=== PATIENT | male | born 1950 | race Caucasian/White ===

== ENCOUNTER → 2016-11-11 | Outpatient (CLI) | payer OTHER ==
[~2016-11-11] MED LIST: /ACET5TA PO; /BACL20TA; /BACL20TA OR; /BACL20TA PO; /FEXO18TA OR; /FEXO18TA PO; /MIRT15TA PO; /PRAV20TA PO; AMIT25TA PO; BACL10TA2; COLA100C2; COLA100C2 OR; CRES5TAB OR; CRES5TAB PO; DOCU10ELUD PO; FINA5TAB2 PO; GABA300C2 PO; IBUP800T OR; IBUP80TA PO; LIDO5DIS; LIDO5DIS TD; MULTCAP PO; MULTIVIT OR; NEOSYNEPHRINE; NEUR300C OR; OMEP20CA3 PO; PRAV40TA2 PO; PRIL20CA OR; TAMS0.4C2 PO; TOPI25TA2 OR; ULTR300T OR; ULTR300T PO; VISINE OU
--- NOTE | 2016-11-26 23:44 | ECWPNPC ---
PATIENT NAME: CHRISSY ARAUJO : 1950 GENDER: MALE VISIT DATE: 11/11/2016 DISCHARGE DATE: 11/11/16 1309 VISIT LOCKED DATE TIME: PHYSICIAN: MONICA CORDOVA RESOURCE: MONICA CORDOVA REASON FOR APPOINTMENT 1. INCREASING PAIN HISTORY OF PRESENT ILLNESS HISTORY OF PRESENT ILLNESS: PAIN THE PATIENT DESCRIBES THE PAIN... FALL RISK SCREENING: SCREENING :NO FALLS IN THE PAST YEAR TODAY'S VISIT: NOTES: FOLLOWUP FOR BACK PAIN. ABOUT 3 WEEKS AGO BEGAN HAVING INCREASE IN LOW BACK PAIN WITH RADIATION TO LEFT LEG TO FOOT. HAS BEEN EXPERIENCING NUMBNESS AND TINGLING IN BOTH FEET. OVER THE LAST WEEK THE PAIN IS NOT QUITE SEVERE IN LEFT BUT IS RAMPING UP ON THE RIGHT. HAD BEEN A BIT MORE ACTIVE BUT HAD NO FALLS AND NO TRAUMA. HAD BEEN TAKEN OFF IBUPROFEN BUT DID TAKE ONE DOSE WHICH WAS MILDLY EFFECTIVE. . CURRENT MEDICATIONS TAKING TAMSULOSIN HCL 0.4 MG CAPSULE ORAL ONCE DAILY TAKING FINASTERIDE 5 MG TABLET ORAL ONCE DAILY TAKING AMITRIPTYLINE HCL 50 MG TABLET ORAL ONCE DAILY TAKING OMEPRAZOLE 40 MG CAPSULE DELAYED RELEASE ORAL ONCE DAILY TAKING LORATADINE 10 MG TABLET 1 TABLET ORALLY ONCE A DAY TAKING ATORVASTATIN CALCIUM 40 MG TABLET 1 TABLET ORALLY ONCE A DAY TAKING METOPROLOL TARTRATE 25 MG TABLET .5 TAB ORALLY TWICE A DAY TAKING ASPIRIN 81 MG TABLET CHEWABLE 1 TABLET ORALLY ONCE A DAY TAKING CLOPIDOGREL BISULFATE 75 MG TABLET 1 TABLET ORALLY ONCE A DAY TAKING RAMIPRIL 2.5 MG CAPSULE 1 CAPSULE ORALLY ONCE A DAY TAKING NITROGLYCERIN 0.4 MG TABLET SUBLINGUAL SUBLINGUAL TAKING GABAPENTIN 300 MG CAPSULE 1 CAPSULE ORALLY TAKE 1 CAP IN AM, ONE CAP AT 3 PM AND 2 CAPS AT BEDTIME TAKING ISOSORBIDE DINITRATE 30 MG TABLET 1 TABLET ORALLY DAILY TAKING FLUOXETINE HCL 40 MG CAPSULE 1 CAPSULE IN THE MORNING ORALLY ONCE A DAY TAKING TRAMADOL HCL ER 300 MG TABLET EXTENDED RELEASE 24 HOUR 1 TABLET ORALLY ONCE A DAY CODE D CHRONIC PAIN MDD=1 NOT-TAKING GABAPENTIN 300 MG CAPSULE 1 CAPSULE ORALLY TWICE DAILY 3 MONTH SUPPLY NOT-TAKING GABAPENTIN 300 MG CAPSULE 1 CAPSULE ORALLY TAKE 1 CQAP IN AM, ONE AT SUPPER AND 2 AT BEDTIME NOT-TAKING PRAVASTATIN SODIUM 40 MG TABLET ORAL ONCE DAILY MEDICATION LIST REVIEWED AND RECONCILED WITH THE PATIENT PAST MEDICAL HISTORY PROSTATE HIGH CHOLESTEROL [place] HEART STENT ALLERGIES POLLEN SOCIAL HISTORY GENERAL: TOBACCO USE ARE YOU A:NONSMOKER LEARNING BARRIERS / SPECIAL NEEDS ORIENTED TO PLAN OF CARE: PATIENT, PAIN MANAGEMENT PATIENT, ORIENTED TO PLAN OF CARE: PATIENT, PAIN MANAGEMENT PATIENT. NEW PATIENT PAIN DIARY TODAY'S VISITNOTES FROM 0-10, WHAT LEVEL IS YOUR PAIN TODAY?0 PAIN CLINIC PFS, CLERGY, PUBLIC HEALTH REFERRALS PFS REFERRAL NEEDED?NO CLERGY REFERRAL NEEDED?NO PUBLIC HEALTH REFERRAL NEEDED?NO WAS THE PROVIDER NOTIFIED OF ANY PERTINENT INFO?NO PFS REFERRAL NEEDED?NO CLERGY REFERRAL NEEDED?NO PUBLIC HEALTH REFERRAL NEEDED?NO WAS THE PROVIDER NOTIFIED OF ANY PERTINENT INFO?NO REVIEW OF SYSTEMS CONSTITUTIONAL: ANY CHANGE IN YOUR MEDICAL CONDITION? NO . CHILLS NO . FEVER NO . INFECTION: DO YOU HAVE NEW INFECTIONS? NO . DO YOU HAVE HISTORY OF MRSA? NO . MUSCULOSKELETAL: ANY NEW PATTERNS OF PAIN OR NUMBNESS? NO . GASTROENTEROLOGY: ANY NEW CHANGE IN BOWEL CONTROL? NO . GENITOURINARY: ANY NEW CHANGE IN BLADDER CONTROL? NO . IS THERE A CHANCE YOU COULD BE ? NO . HEMATOLOGY/LYMPH: DO YOU TAKE ANY BLOOD THINNERS? (FOR EXAMPLE- COUMADIN, PLAVIX, AGGRENOX, PLATEL, PRADAXA, OR XARELTO) NO . WHEN WAS YOUR LAST DOSE? DATE: TIME: . NEUROLOGY: HAVE YOU FALLEN IN THE PAST 6 MONTHS? NO . ANY NEW EXTREMITY NUMBNESS OR WEAKNESS? NO . CARDIOLOGY: DO YOU HAVE A PACEMAKER OR DEFIBRILLATOR? NO . HEART ATTACK STATUS POST CARDIAC STENT 07/18 . CHEST PAIN LAST NITE HAD CHEST PAIN AND TOOK MICHAEL X1. . CHEST PAIN LASTED FOR 2 HOURS. . RESPIRATORY: HAVE YOU BEEN SICK IN THE PAST WEEK? NO . FEVER NO . FLU LIKE SYMPTOMS? NO . COUGH NO . INTEGUMENTARY: DO YOU HAVE ANY RASHES OR OPEN SORES? NO . ALLERGIC/IMMUNO: ARE YOU ALLERGIC TO SHELLFISH OR IV DYE? NO . ANY NEW ALLERGIES? NO . PSYCHIATRIC: DO YOU HAVE THOUGHTS OF HURTING YOURSELF OR SOMEONE ELSE? NO . ARE YOU ABUSED, NEGLECTED, OR IN AN UNSAFE ENVIRONMENT? NO . ENDOCRINOLOGY: ARE YOU DIABETIC? NO . OTHER: DO YOU NEED ANY PRESCRIPTIONS? YES NEEDS ELECTRODES FOR TENS UNIT . IF YES, PLEASE LIST: ____ . ANY NEW PROBLEMS WITH YOUR MEDICATIONS? NO . WHEN DID YOU LAST EAT? ____ . WHEN DID YOU LAST DRINK? ____ . WHAT DID YOU LAST DRINK? ____ . NAME OF PERSON DRIVING YOU HOME? ____ . DO YOU HAVE ANY OTHER QUESTIONS OR CONCERNS NO . REVIEWED BY: PROVIDER: MONICA JAY . VITAL SIGNS WT 210 LBS, HT 72 IN, BMI 28.48 INDEX, BP 134/76 MM HG, HR 89 /MIN, RR 16 /MIN, TEMP 98 F,2 F, OXYGEN SAT % 94, SAFE IN ENV? (Y/N) Y, REVIEWED BY: KG. EXAMINATION GENERAL EXAMINATION: LUNGS:CLEAR TO AUSCULTATION BILATERALLY. HEART:HEART RATE REGULAR. MUSCULOSKELETAL:MUSCLE STRENGTH TESTING 5/5 LEFT LOWER EXTREMITY, 5-/5 RIGHT LOWER EXTREMITY, BOTH DISTALLY AND PROXIMALLY. , PALPATION: POSITIVE FOR PAIN WITH PALPATION OVER LUMBAR SPINOUS PROCESSES AND ACROSS THE LUMBOSACRAL AXIS. EXQUISITE TENDERNESS WITH PALPATION BILATERALLY OVER THE SACRALILIAC JOINTS. SLOW AND STIFF TO STAND , GAIT ANTALGIC. POSTURE STOOPED.. 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 GET FOLLOWUP APPOINTMENT WITH DR MILLER - CAN HE PUT PLAVIX ON HOLD FOR 7 DAYS FOR EPIDURAL INJECTION. PROCEDURES PN WORKMANS' COMP OPINION IN YOUR OPINION, WAS THE INCIDENT THAT THE PATIENT DESCRIBED THE COMPETENT MEDICAL CAUSE OF THIS INJURY/ILLNESS? YES ARE THE PATIENT'S COMPLAINTS CONSISTENT WITH HIS/HER HISTORY OF THE INJURY/ILLNESS? YES IS THE PATIENT'S HISTORY OF THE INJURY/ILLNESS CONSISTENT WITH YOUR OBJECTIVE FINDING? YES WHAT IS THE PERCENTAGE OF TEMPORARY IMPAIRMENT? MODERATE TO MARKED = 66.7% IS THE PATIENT WORKING? NO DOCTOR ON SITE: ROBERT VIRGEN MD PROCEDURE CODES FA211 ESTABILISHED PATIENT [facility] CHARGE FOLLOW UP 4 WEEKS (REASON: NEED AUTH FROM FOR [facility], SEND LETTER FROM DR MILLER TO BE OFF PLAVIX FOR 7 DAYS) ELECTRONICALLY SIGNED BY ROBLES MILLER ON 11/26/2016 AT 09:45 AM EST DISCLAIMER : THIS IS A VISIT SUMMARY EXTRACTED FROM THE [employer] CHART. IT IS NOT A COPY OF THE [employer] PROGRESS NOTE. TOO
== END ==
LOC: M PAIN 11:40
PROVIDERS: ATTEND Nurse Practitioner Family
DX: Z09 Encounter for follow-up examination after completed treatment for conditions other than malignant neoplasm (principal); M47.816 Spondylosis without myelopathy or radiculopathy, lumbar region; M47.817 Spondylosis without myelopathy or radiculopathy, lumbosacral region; E78.00 Pure hypercholesterolemia, unspecified; I25.2 Old myocardial infarction; J30.1 Allergic rhinitis due to pollen; Z79.82 Long term (current) use of aspirin; Z79.891 Long term (current) use of opiate analgesic; Z79.899 Other long term (current) drug therapy; Z95.5 Presence of coronary angioplasty implant and graft

== ENCOUNTER → 2017-01-20 | Outpatient (CLI) | payer OTHER ==
--- NOTE | 2017-01-24 00:32 | ECWPNPC ---
PATIENT NAME: CHRISSY ARAUJO : 1950 GENDER: MALE VISIT DATE: 01/20/2017 DISCHARGE DATE: 01/20/17 0946 VISIT LOCKED DATE TIME: PHYSICIAN: MONICA CORDOVA RESOURCE: MONICA CORDOVA REASON FOR APPOINTMENT 1. WC, BACK HISTORY OF PRESENT ILLNESS HISTORY OF PRESENT ILLNESS: PAIN THE PATIENT DESCRIBES THE PAIN... FALL RISK SCREENING: SCREENING :NO FALLS IN THE PAST YEAR TODAY'S VISIT: NOTES: WC FOLLOWUP FOR BACK PAIN. RATES PAIN TODAY 2/10. HAS NOTED IMPROVEMENT IN PAIN WITH USE OF THE PAIN RADIATING TO LEFT LEG HAS IMPROVED. STILL HAS CONSISTANT SHOOTING PAIN IN RIGHT LEG. . CURRENT MEDICATIONS TAKING TAMSULOSIN HCL 0.4 MG CAPSULE ORAL ONCE DAILY TAKING FINASTERIDE 5 MG TABLET ORAL ONCE DAILY TAKING AMITRIPTYLINE HCL 50 MG TABLET ORAL ONCE DAILY TAKING OMEPRAZOLE 40 MG CAPSULE DELAYED RELEASE ORAL ONCE DAILY TAKING LORATADINE 10 MG TABLET 1 TABLET ORALLY ONCE A DAY TAKING ATORVASTATIN CALCIUM 40 MG TABLET 1 TABLET ORALLY ONCE A DAY TAKING METOPROLOL TARTRATE 25 MG TABLET .5 TAB ORALLY TWICE A DAY TAKING ASPIRIN 81 MG TABLET CHEWABLE 1 TABLET ORALLY ONCE A DAY TAKING CLOPIDOGREL BISULFATE 75 MG TABLET 1 TABLET ORALLY ONCE A DAY TAKING RAMIPRIL 2.5 MG CAPSULE 1 CAPSULE ORALLY ONCE A DAY TAKING NITROGLYCERIN 0.4 MG TABLET SUBLINGUAL SUBLINGUAL TAKING GABAPENTIN 300 MG CAPSULE 1 CAPSULE ORALLY TAKE 1 CAP IN AM, ONE CAP AT 3 PM AND 2 CAPS AT BEDTIME TAKING ISOSORBIDE DINITRATE 30 MG TABLET 1 TABLET ORALLY DAILY TAKING FLUOXETINE HCL 40 MG CAPSULE 1 CAPSULE IN THE MORNING ORALLY ONCE A DAY TAKING NORCO 5-325 MG TABLET 1 TABLET NEEDED ORALLY EVERY 12 HRS PRN SEVERE PAIN MDD=2 TAKING TRAMADOL HCL ER 300 MG TABLET EXTENDED RELEASE 24 HOUR 1 TABLET ORALLY ONCE A DAY CODE D CHRONIC PAIN MDD=1 NOT-TAKING GABAPENTIN 300 MG CAPSULE 1 CAPSULE ORALLY TWICE DAILY 3 MONTH SUPPLY NOT-TAKING GABAPENTIN 300 MG CAPSULE 1 CAPSULE ORALLY TAKE 1 CQAP IN AM, ONE AT SUPPER AND 2 AT BEDTIME NOT-TAKING PRAVASTATIN SODIUM 40 MG TABLET ORAL ONCE DAILY MEDICATION LIST REVIEWED AND RECONCILED WITH THE PATIENT PAST MEDICAL HISTORY PROSTATE HIGH CHOLESTEROL [place] HEART STENT ALLERGIES POLLEN SOCIAL HISTORY GENERAL: TOBACCO USE ARE YOU A:NONSMOKER LEARNING BARRIERS / SPECIAL NEEDS ORIENTED TO PLAN OF CARE: PATIENT, PAIN MANAGEMENT PATIENT, ORIENTED TO PLAN OF CARE: PATIENT, PAIN MANAGEMENT PATIENT. NEW PATIENT PAIN DIARY TODAY'S VISITNOTES FROM 0-10, WHAT LEVEL IS YOUR PAIN TODAY?0 PAIN CLINIC PFS, CLERGY, PUBLIC HEALTH REFERRALS PFS REFERRAL NEEDED?NO CLERGY REFERRAL NEEDED?NO PUBLIC HEALTH REFERRAL NEEDED?NO WAS THE PROVIDER NOTIFIED OF ANY PERTINENT INFO?NO PFS REFERRAL NEEDED?NO CLERGY REFERRAL NEEDED?NO PUBLIC HEALTH REFERRAL NEEDED?NO WAS THE PROVIDER NOTIFIED OF ANY PERTINENT INFO?NO REVIEW OF SYSTEMS CONSTITUTIONAL: ANY CHANGE IN YOUR MEDICAL CONDITION? NO . CHILLS NO . FEVER NO . INFECTION: DO YOU HAVE NEW INFECTIONS? NO . DO YOU HAVE HISTORY OF MRSA? NO . MUSCULOSKELETAL: ANY NEW PATTERNS OF PAIN OR NUMBNESS? NO . GASTROENTEROLOGY: ANY NEW CHANGE IN BOWEL CONTROL? NO . GENITOURINARY: ANY NEW CHANGE IN BLADDER CONTROL? NO . IS THERE A CHANCE YOU COULD BE ? NO . HEMATOLOGY/LYMPH: DO YOU TAKE ANY BLOOD THINNERS? (FOR EXAMPLE- COUMADIN, PLAVIX, AGGRENOX, PLATEL, PRADAXA, OR XARELTO) YES, PLAVIX . WHEN WAS YOUR LAST DOSE? DATE:01/20/17 TIME: 0730 . NEUROLOGY: HAVE YOU FALLEN IN THE PAST 6 MONTHS? NO . ANY NEW EXTREMITY NUMBNESS OR WEAKNESS? NO . CARDIOLOGY: DO YOU HAVE A PACEMAKER OR DEFIBRILLATOR? NO . CHEST PAIN OCCASIONAL. HAS NEEDED TO USE NTG. BALL HAD SOME SOB WITH EXERTION . RESPIRATORY: HAVE YOU BEEN SICK IN THE PAST WEEK? NO . FEVER NO . FLU LIKE SYMPTOMS? NO . COUGH NO . INTEGUMENTARY: DO YOU HAVE ANY RASHES OR OPEN SORES? NO . ALLERGIC/IMMUNO: ARE YOU ALLERGIC TO SHELLFISH OR IV DYE? NO . ANY NEW ALLERGIES? NO . PSYCHIATRIC: DO YOU HAVE THOUGHTS OF HURTING YOURSELF OR SOMEONE ELSE? NO . ARE YOU ABUSED, NEGLECTED, OR IN AN UNSAFE ENVIRONMENT? NO . ENDOCRINOLOGY: ARE YOU DIABETIC? NO . OTHER: DO YOU NEED ANY PRESCRIPTIONS? NO . IF YES, PLEASE LIST: ____ . ANY NEW PROBLEMS WITH YOUR MEDICATIONS? NO . WHEN DID YOU LAST EAT? ____ . WHEN DID YOU LAST DRINK? ____ . WHAT DID YOU LAST DRINK? ____ . NAME OF PERSON DRIVING YOU HOME? ____ . DO YOU HAVE ANY OTHER QUESTIONS OR CONCERNS NO . REVIEWED BY: PROVIDER: MONICA JAY . VITAL SIGNS WT 210 LBS, HT 72 IN, BMI 28.48 INDEX, BP 133/80 MM HG, HR 56 /MIN, RR 18 /MIN, TEMP 97.0 F, OXYGEN SAT % 96, NA INITIALS HS, REVIEWED BY: CS. EXAMINATION GENERAL EXAMINATION: PSYCHALERT , ORIENTED X 3 , APPROPRIATE MOOD AND AFFECT . LUNGS:CLEAR TO AUSCULTATION BILATERALLY. HEART:HEART RATE REGULAR. MUSCULOSKELETAL:SLOW TO RISE TO STANDING POSITION. DIFFICULTY WITH BALANCE. POSTURE UPRIGHT TODAY. POINT TENDERNESS OVER LUMBAR SPINOUS PROCESSES AND RIGHT SACRALILIAC JOINT. GAIT IS STEPPING IN NATURE. NEUROLOGIC EXAM:POSITIVE ROMBERG. DECREASED SENSATION IN STOCKING/GLOVE NATURE FROM FEET TO MIDCALF. 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 WALK TOLERATED. PROCEDURES PN WORKMANS' COMP OPINION IN YOUR OPINION, WAS THE INCIDENT THAT THE PATIENT DESCRIBED THE COMPETENT MEDICAL CAUSE OF THIS INJURY/ILLNESS? YES ARE THE PATIENT'S COMPLAINTS CONSISTENT WITH HIS/HER HISTORY OF THE INJURY/ILLNESS? YES IS THE PATIENT'S HISTORY OF THE INJURY/ILLNESS CONSISTENT WITH YOUR OBJECTIVE FINDING? YES WHAT IS THE PERCENTAGE OF TEMPORARY IMPAIRMENT? MODERATE TO MARKED = 66.7% IS THE PATIENT WORKING? NO DOCTOR ON SITE: ROBERT VIRGEN MD PROCEDURE CODES FA211 ESTABILISHED PATIENT [facility] CHARGE DISPOSITION & COMMUNICATION FOLLOW UP 6 WEEKS (REASON: WC BACK) ELECTRONICALLY SIGNED BY ROBLES MILLER ON 01/23/2017 AT 06:24 PM EDT DISCLAIMER : THIS IS A VISIT SUMMARY EXTRACTED FROM THE [facility] CHART. IT IS NOT A COPY OF THE [facility] PROGRESS NOTE. TOO
== END ==
LOC: M PAIN 09:00
PROVIDERS: ATTEND Nurse Practitioner Family
DX: Z09 Encounter for follow-up examination after completed treatment for conditions other than malignant neoplasm (principal); G89.29 Other chronic pain; M47.816 Spondylosis without myelopathy or radiculopathy, lumbar region; M47.817 Spondylosis without myelopathy or radiculopathy, lumbosacral region; E78.00 Pure hypercholesterolemia, unspecified; I25.2 Old myocardial infarction; Z79.01 Long term (current) use of anticoagulants; Z79.82 Long term (current) use of aspirin; Z79.891 Long term (current) use of opiate analgesic; Z79.899 Other long term (current) drug therapy

== ENCOUNTER → 2017-04-13 | Outpatient (CLI) | payer OTHER ==
--- NOTE | 2017-04-14 02:29 | ECWPNPC ---
PATIENT NAME: CHRISSY ARAUJO : 1950 GENDER: MALE VISIT DATE: 04/13/2017 DISCHARGE DATE: 04/13/17915 VISIT LOCKED DATE TIME: PHYSICIAN: MONICA CORDOVA RESOURCE: MONICA CORDOVA HISTORY OF PRESENT ILLNESS HISTORY OF PRESENT ILLNESS: PAIN THE PATIENT DESCRIBES THE PAIN... FALL RISK SCREENING: SCREENING :NO FALLS IN THE PAST YEAR TODAY'S VISIT: NOTES: HAS DOING WELL = PAIN LEVLE 12/12. DESCRIBES PAIN ACHING, TENDER AND SORE. HAS HAD 2 EPISODES OF FALLS RESULTING FROM TRIPPING SWECONDARY TO WEAKNESS IN THE RIGHT LEG. HAS CONTINUED TO HAVE NUMBNESS FROM IN RIGHT CALF TO FOOT. HAS BEEN SLEEING FARLY WELL. REPORTS MEDICATIONS ARE HELPFUL TO KEEP PAIN CONTROLLED.. CURRENT MEDICATIONS TAKING TAMSULOSIN HCL 0.4 MG CAPSULE ORAL ONCE DAILY TAKING FINASTERIDE 5 MG TABLET ORAL ONCE DAILY TAKING AMITRIPTYLINE HCL 50 MG TABLET ORAL ONCE DAILY TAKING OMEPRAZOLE 40 MG CAPSULE DELAYED RELEASE ORAL ONCE DAILY TAKING LORATADINE 10 MG TABLET 1 TABLET ORALLY ONCE A DAY TAKING ATORVASTATIN CALCIUM 40 MG TABLET 1 TABLET ORALLY ONCE A DAY TAKING METOPROLOL TARTRATE 25 MG TABLET .5 TAB ORALLY DAILY TAKING ASPIRIN 81 MG TABLET CHEWABLE 1 TABLET ORALLY ONCE A DAY TAKING CLOPIDOGREL BISULFATE 75 MG TABLET 1 TABLET ORALLY ONCE A DAY TAKING RAMIPRIL 2.5 MG CAPSULE 1 CAPSULE ORALLY ONCE A DAY TAKING NITROGLYCERIN 0.4 MG TABLET SUBLINGUAL SUBLINGUAL TAKING GABAPENTIN 300 MG CAPSULE 1 CAPSULE ORALLY TAKE 1 CAP IN AM, ONE CAP AT 3 PM AND 2 CAPS AT BEDTIME TAKING ISOSORBIDE DINITRATE 30 MG TABLET 1 TABLET ORALLY DAILY TAKING FLUOXETINE HCL 40 MG CAPSULE 1 CAPSULE IN THE MORNING ORALLY ONCE A DAY TAKING NORCO 5-325 MG TABLET 1 TABLET NEEDED ORALLY EVERY 12 HRS PRN SEVERE PAIN MDD=2 TAKING TRAMADOL HCL ER 300 MG TABLET EXTENDED RELEASE 24 HOUR 1 TABLET ORALLY ONCE A DAY CODE D CHRONIC PAIN MDD=1 TAKING VITAMIN B COMPLEX - CAPSULE ORALLY NOT-TAKING GABAPENTIN 300 MG CAPSULE 1 CAPSULE ORALLY TWICE DAILY 3 MONTH SUPPLY NOT-TAKING GABAPENTIN 300 MG CAPSULE 1 CAPSULE ORALLY TAKE 1 CQAP IN AM, ONE AT SUPPER AND 2 AT BEDTIME NOT-TAKING PRAVASTATIN SODIUM 40 MG TABLET ORAL ONCE DAILY MEDICATION LIST REVIEWED AND RECONCILED WITH THE PATIENT PAST MEDICAL HISTORY PROSTATE HIGH CHOLESTEROL [place] HEART STENT ALLERGIES POLLEN REVIEW OF SYSTEMS CONSTITUTIONAL: ANY CHANGE IN YOUR MEDICAL CONDITION? NO . CHILLS NO . FEVER NO . INFECTION: DO YOU HAVE NEW INFECTIONS? NO . DO YOU HAVE HISTORY OF MRSA? NO . MUSCULOSKELETAL: ANY NEW PATTERNS OF PAIN OR NUMBNESS? NO . GASTROENTEROLOGY: ANY NEW CHANGE IN BOWEL CONTROL? NO . GENITOURINARY: ANY NEW CHANGE IN BLADDER CONTROL? NO . IS THERE A CHANCE YOU COULD BE ? NO . HEMATOLOGY/LYMPH: DO YOU TAKE ANY BLOOD THINNERS? (FOR EXAMPLE- COUMADIN, PLAVIX, AGGRENOX, PLATEL, PRADAXA, OR XARELTO) YES . WHEN WAS YOUR LAST DOSE? DATE: TIME: . NEUROLOGY: HAVE YOU FALLEN IN THE PAST 6 MONTHS? YES PT REPORTS TWO FALLS IN PAST SIX MONTHS DUE TO TRIPPING, DOESN'T THINK HE IS LOSING HIS BALANCE OR BECAUSE OF LEG WEAKNESS. STATES HE CATCHES HIS FEET ON SOMETHING AND TRIPS. DENIES INJURIES.&NBSP;. ANY NEW EXTREMITY NUMBNESS OR WEAKNESS? &NBSP;&NBSP; NO&NBSP;. CARDIOLOGY: DO YOU HAVE A PACEMAKER OR DEFIBRILLATOR? NO . CHEST PAIN PATIENT ADMITS TO ONE EVENT SINCE LAST VISIT, REQUIRING NITRO X2 AND BABY ASPIRIN . RESPIRATORY: HAVE YOU BEEN SICK IN THE PAST WEEK? NO . FEVER NO . FLU LIKE SYMPTOMS? NO . CHRONIC LUNG DISEASES HAD PULMONARY FUNCTION TESTING. . SHORTNESS OF BREATH ON EXERTION CONTINUES TO HAVE DIFFICULTY WITH ACTIVITY . COUGH NO . INTEGUMENTARY: DO YOU HAVE ANY RASHES OR OPEN SORES? NO . ALLERGIC/IMMUNO: ARE YOU ALLERGIC TO SHELLFISH OR IV DYE? NO . ANY NEW ALLERGIES? NO . PSYCHIATRIC: DO YOU HAVE THOUGHTS OF HURTING YOURSELF OR SOMEONE ELSE? NO . ARE YOU ABUSED, NEGLECTED, OR IN AN UNSAFE ENVIRONMENT? NO . ENDOCRINOLOGY: ARE YOU DIABETIC? YES . OTHER: DO YOU NEED ANY PRESCRIPTIONS? YES . IF YES, PLEASE LIST: ____GABAPENTIN [facility]&NBSP;. ANY NEW PROBLEMS WITH YOUR MEDICATIONS? &NBSP;&NBSP; NO&NBSP;. WHEN DID YOU LAST EAT? &NBSP;&NBSP; ____&NBSP;. WHEN DID YOU LAST DRINK? &NBSP;&NBSP; ____&NBSP;. WHAT DID YOU LAST DRINK? &NBSP;&NBSP; ____&NBSP;. NAME OF PERSON DRIVING YOU HOME? &NBSP;&NBSP; ____&NBSP;. DO YOU HAVE ANY OTHER QUESTIONS OR CONCERNS &NBSP;&NBSP; NO&NBSP;. REVIEWED BY: PROVIDER: MONICA JAY . VITAL SIGNS WT 222.6 LBS, HT 72 IN, BMI 30.19 INDEX, BP 118/78 MM HG, HR 56 /MIN, RR 18 /MIN, TEMP 97.8 F, OXYGEN SAT % 96%, SAFE IN ENV? (Y/N) YES, NA INITIALS SC 08:41, REVIEWED BY: REEMA. EXAMINATION GENERAL EXAMINATION: PSYCHALERT , ORIENTED X 3 , APPROPRIATE MOOD AND AFFECT . LUNGS:CLEAR TO AUSCULTATION BILATERALLY. HEART:HEART RATE REGULAR. MUSCULOSKELETAL:RISES QUICKLY TO STANDING POSITION, BUT HAS SIGNIFICANT DIFFICULTY WITH BALANCE. POSTURE UPRIGHT TODAY. POINT TENDERNESS OVER LUMBAR SPINOUS PROCESSES AND RIGHT SACRALILIAC JOINT. GAIT IS STEPPING IN NATURE. NEUROLOGIC EXAM:POSITIVE ROMBERG. DECREASED SENSATION IN STOCKING/GLOVE NATURE FROM FEET TO MIDCALF. 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 CONTINUE CURRENT MEDS. PROCEDURES PN WORKMANS' COMP OPINION IN YOUR OPINION, WAS THE INCIDENT THAT THE PATIENT DESCRIBED THE COMPETENT MEDICAL CAUSE OF THIS INJURY/ILLNESS? YES ARE THE PATIENT'S COMPLAINTS CONSISTENT WITH HIS/HER HISTORY OF THE INJURY/ILLNESS? YES IS THE PATIENT'S HISTORY OF THE INJURY/ILLNESS CONSISTENT WITH YOUR OBJECTIVE FINDING? YES WHAT IS THE PERCENTAGE OF TEMPORARY IMPAIRMENT? MODERATE TO MARKED = 66.7% IS THE PATIENT WORKING? NO DOCTOR ON SITE: ROBERT VIRGEN MD PROCEDURE CODES FA211 ESTABILISHED PATIENT [facility] CHARGE DISPOSITION & COMMUNICATION FOLLOW UP 3 MONTHS (REASON: WC- LOW BACK PAIN) ELECTRONICALLY SIGNED BY ROBLES MILLER ON 04/13/2017 AT 11:10 AM EDT DISCLAIMER : THIS IS A VISIT SUMMARY EXTRACTED FROM THE [employer] CHART. IT IS NOT A COPY OF THE [employer] PROGRESS NOTE. TOO
== END ==
LOC: M PAIN 08:40
PROVIDERS: ATTEND Nurse Practitioner Family
DX: G89.29 Other chronic pain (principal); M47.816 Spondylosis without myelopathy or radiculopathy, lumbar region; M47.817 Spondylosis without myelopathy or radiculopathy, lumbosacral region; E78.00 Pure hypercholesterolemia, unspecified; I25.2 Old myocardial infarction; J30.2 Other seasonal allergic rhinitis; E11.9 Type 2 diabetes mellitus without complications; Z79.82 Long term (current) use of aspirin; Z79.891 Long term (current) use of opiate analgesic; Z79.899 Other long term (current) drug therapy

== ENCOUNTER → 2017-07-14 | Outpatient (CLI) | payer OTHER ==
--- NOTE | 2017-07-29 02:52 | ECWPNPC ---
PATIENT NAME: CHRISSY ARAUJO : 1950 GENDER: MALE VISIT DATE: 07/14/2017 DISCHARGE DATE: 07/14/17930 VISIT LOCKED DATE TIME: PHYSICIAN: MONICA CORDOVA RESOURCE: MONICA CORDOVA REASON FOR APPOINTMENT 1. WC- LOW BACK PAIN HISTORY OF PRESENT ILLNESS HISTORY OF PRESENT ILLNESS: PAIN THE PATIENT DESCRIBES THE PAIN... FALL RISK SCREENING: SCREENING :NO FALLS IN THE PAST YEAR TODAY'S VISIT: NOTES: FOLLOWUP FOR LOW BACK PAIN. RATES PAIN TODAYA S 01/09. PAIN IS PRIMARILY CENTERED OVER LOW BACK WITH RADIATING NUMBNESS INTO LEGS. USES USUAL MEDS BUT ABOUT ONCE PER MONTH PAIN BECOMES TOO SEVREE DOES USE 1 OXYCODONE WITH GOOD EFFECT. NO FALLS BUT HAS HAD SOME STUMBLES. STAIRS ARE AN ISSUE WITH BALANCE AND STRENGTH. . CURRENT MEDICATIONS TAKING TAMSULOSIN HCL 0.4 MG CAPSULE ORAL ONCE DAILY TAKING FINASTERIDE 5 MG TABLET ORAL ONCE DAILY TAKING AMITRIPTYLINE HCL 50 MG TABLET ORAL ONCE DAILY TAKING OMEPRAZOLE 40 MG CAPSULE DELAYED RELEASE ORAL ONCE DAILY TAKING LORATADINE 10 MG TABLET 1 TABLET ORALLY ONCE A DAY TAKING ATORVASTATIN CALCIUM 40 MG TABLET 1 TABLET ORALLY ONCE A DAY TAKING METOPROLOL TARTRATE 25 MG TABLET .5 TAB ORALLY DAILY TAKING ASPIRIN 81 MG TABLET CHEWABLE 1 TABLET ORALLY ONCE A DAY TAKING CLOPIDOGREL BISULFATE 75 MG TABLET 1 TABLET ORALLY ONCE A DAY TAKING RAMIPRIL 2.5 MG CAPSULE 1 CAPSULE ORALLY ONCE A DAY TAKING NITROGLYCERIN 0.4 MG TABLET SUBLINGUAL SUBLINGUAL TAKING FLUOXETINE HCL 40 MG CAPSULE 1 CAPSULE IN THE MORNING ORALLY ONCE A DAY TAKING NORCO 5-325 MG TABLET 1 TABLET NEEDED ORALLY EVERY 12 HRS PRN SEVERE PAIN MDD=2 TAKING TRAMADOL HCL ER 300 MG TABLET EXTENDED RELEASE 24 HOUR 1 TABLET ORALLY ONCE A DAY CODE D CHRONIC PAIN MDD=1 TAKING VITAMIN B COMPLEX - CAPSULE 1 TAB ORALLY DAILY TAKING GABAPENTIN 300 MG CAPSULE 1 CAPSULE ORALLY TAKE 1 CAP IN AM, ONE CAP AT 3 PM AND 2 CAPS AT BEDTIME TAKING ISOSORBIDE MONONITRATE ER 60 MG TABLET EXTENDED RELEASE 24 HOUR 1 TABLET IN THE MORNING ORALLY ONCE A DAY NOT-TAKING ISOSORBIDE DINITRATE 30 MG TABLET 1 TABLET ORALLY DAILY NOT-TAKING GABAPENTIN 300 MG CAPSULE 1 CAPSULE ORALLY TWICE DAILY 3 MONTH SUPPLY NOT-TAKING GABAPENTIN 300 MG CAPSULE 1 CAPSULE ORALLY TAKE 1 CQAP IN AM, ONE AT SUPPER AND 2 AT BEDTIME NOT-TAKING PRAVASTATIN SODIUM 40 MG TABLET ORAL ONCE DAILY MEDICATION LIST REVIEWED AND RECONCILED WITH THE PATIENT PAST MEDICAL HISTORY PROSTATE HIGH CHOLESTEROL AK HEART STENT ALLERGIES POLLEN SOCIAL HISTORY GENERAL: TOBACCO USE ARE YOU A:NONSMOKER ALEVISM [id number] ISLAM LANGUAGE LANGUAGES SPOKEN:[place] LEARNING BARRIERS / SPECIAL NEEDS CHANGE FROM LAST VISIT?NO BARRIERS TO LEARNING?NO HEARING IMPAIRED?YES :HEARING AIDES VISION IMPAIRED?YES :CORRECTIVE LENSES COGNITIVELY IMPAIRED?NO READINESS TO LEARN?YES LEARNING PREFERENCES?NO LEARNING CAPABILITIES PRESENT?YES EMOTIONAL BARRIERS?NO SPECIAL DEVICES?NO GRADES 1 6 TUTOR NEEDED?NO NEW PATIENT PAIN DIARY TODAY'S VISITNOTES FROM 0-10, WHAT LEVEL IS YOUR PAIN TODAY?0 PAIN CLINIC PFS, CLERGY, PUBLIC HEALTH REFERRALS PFS REFERRAL NEEDED?NO CLERGY REFERRAL NEEDED?NO PUBLIC HEALTH REFERRAL NEEDED?NO WAS THE PROVIDER NOTIFIED OF ANY PERTINENT INFO?NO HAS THE PATIENT BEEN EDUCATED REGARDING HIS/HER PLAN OF CARE?YES HAS THE PATIENT BEEN EDUCATED REGARDING PAIN, THE RISK FOR PAIN, THE IMPORTANCE OF EFFECTIVE PAIN MANAGEMENT, AND THE PAIN ASSESSMENT PROCESS?YES REVIEW OF SYSTEMS REVIEWED BY: PROVIDER: MONICA JAY . CONSTITUTIONAL: ANY CHANGE IN YOUR MEDICAL CONDITION? NO . CHILLS NO . FEVER NO . INFECTION: DO YOU HAVE NEW INFECTIONS? NO . DO YOU HAVE HISTORY OF MRSA? NO . MUSCULOSKELETAL: ANY NEW PATTERNS OF PAIN OR NUMBNESS? NO . GASTROENTEROLOGY: ANY NEW CHANGE IN BOWEL CONTROL? NO . GENITOURINARY: ANY NEW CHANGE IN BLADDER CONTROL? NO . IS THERE A CHANCE YOU COULD BE ? NO . HEMATOLOGY/LYMPH: DO YOU TAKE ANY BLOOD THINNERS? (FOR EXAMPLE- COUMADIN, PLAVIX, AGGRENOX, PLATEL, PRADAXA, OR XARELTO) YES, PLAVIX . WHEN WAS YOUR LAST DOSE? DATE:07/14/17 TIME: 0700 . NEUROLOGY: HAVE YOU FALLEN IN THE PAST 6 MONTHS? NO . ANY NEW EXTREMITY NUMBNESS OR WEAKNESS? NO . CARDIOLOGY: DO YOU HAVE A PACEMAKER OR DEFIBRILLATOR? NO . RESPIRATORY: HAVE YOU BEEN SICK IN THE PAST WEEK? NO . FEVER NO . FLU LIKE SYMPTOMS? NO . COUGH NO . INTEGUMENTARY: DO YOU HAVE ANY RASHES OR OPEN SORES? NO . ALLERGIC/IMMUNO: ARE YOU ALLERGIC TO SHELLFISH OR IV DYE? NO . ANY NEW ALLERGIES? NO . PSYCHIATRIC: DO YOU HAVE THOUGHTS OF HURTING YOURSELF OR SOMEONE ELSE? NO . ARE YOU ABUSED, NEGLECTED, OR IN AN UNSAFE ENVIRONMENT? NO . ENDOCRINOLOGY: ARE YOU DIABETIC? NO . OTHER: DO YOU NEED ANY PRESCRIPTIONS? NO . IF YES, PLEASE LIST: ____ . ANY NEW PROBLEMS WITH YOUR MEDICATIONS? NO . WHEN DID YOU LAST EAT? ____ . WHEN DID YOU LAST DRINK? ____ . WHAT DID YOU LAST DRINK? ____ . NAME OF PERSON DRIVING YOU HOME? ____ . DO YOU HAVE ANY OTHER QUESTIONS OR CONCERNS NO . VITAL SIGNS WT 223 LBS, HT 72 IN, BMI 30.24 INDEX, BP 140/78 MM HG, HR 56 /MIN, RR 18 /MIN, TEMP 97.9 F, OXYGEN SAT % 93%, NA INITIALS AW 0846, REVIEWED BY: CS. EXAMINATION GENERAL EXAMINATION: PSYCHALERT , ORIENTED X 3 , APPROPRIATE MOOD AND AFFECT . LUNGS:CLEAR TO AUSCULTATION BILATERALLY. HEART:HEART RATE REGULAR. MUSCULOSKELETAL:RISES QUICKLY TO STANDING POSITION, BUT HAS SIGNIFICANT DIFFICULTY WITH BALANCE. POSTURE UPRIGHT TODAY. POINT TENDERNESS OVER LUMBAR SPINOUS PROCESSES AND RIGHT SACRALILIAC JOINT. GAIT IS STEPPING IN NATURE. NEUROLOGIC EXAM:POSITIVE ROMBERG. DECREASED SENSATION IN STOCKING/GLOVE NATURE FROM FEET TO [place]. 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 CONTINUE CURRENT MEDS. CALL WHEN SCRIPTS DUE. PROCEDURES PN WORKMANS' COMP OPINION IN YOUR OPINION, WAS THE INCIDENT THAT THE PATIENT DESCRIBED THE COMPETENT MEDICAL CAUSE OF THIS INJURY/ILLNESS? YES ARE THE PATIENT'S COMPLAINTS CONSISTENT WITH HIS/HER HISTORY OF THE INJURY/ILLNESS? YES IS THE PATIENT'S HISTORY OF THE INJURY/ILLNESS CONSISTENT WITH YOUR OBJECTIVE FINDING? YES WHAT IS THE PERCENTAGE OF TEMPORARY IMPAIRMENT? MODERATE TO MARKED = 66.7% IS THE PATIENT WORKING? NO DOCTOR ON SITE: ROBERT VIRGEN MD PROCEDURE CODES FA211 ESTABILISHED PATIENT [facility] FACILITY CHARGE DISPOSITION & COMMUNICATION FOLLOW UP 3 MONTHS (REASON: WC LOW BACK) ELECTRONICALLY SIGNED BY ROBLES MILLER ON 07/28/2017 AT 07:32 PM EDT DISCLAIMER : THIS IS A VISIT SUMMARY EXTRACTED FROM THE [facility] [facility] [employer] CHART. IT IS NOT A COPY OF THE [facility] PROGRESS NOTE. TOO
== END ==
LOC: M PAIN 08:40
PROVIDERS: ATTEND Nurse Practitioner Family
DX: G89.29 Other chronic pain (principal); M47.816 Spondylosis without myelopathy or radiculopathy, lumbar region; M47.817 Spondylosis without myelopathy or radiculopathy, lumbosacral region; I25.2 Old myocardial infarction; J30.1 Allergic rhinitis due to pollen; Z79.01 Long term (current) use of anticoagulants; Z79.82 Long term (current) use of aspirin; Z79.891 Long term (current) use of opiate analgesic; Z79.899 Other long term (current) drug therapy

== ENCOUNTER → 2017-11-16 | Outpatient (CLI) | payer OTHER | LOC: M PAIN 14:00 | DX: M47.816 Spondylosis without myelopathy or radiculopathy, lumbar region (principal); M47.817 Spondylosis without myelopathy or radiculopathy, lumbosacral region; E78.00 Pure hypercholesterolemia, unspecified; I25.2 Old myocardial infarction; Z79.891 Long term (current) use of opiate analgesic; Z79.82 Long term (current) use of aspirin; Z79.899 Other long term (current) drug therapy; J30.2 Other seasonal allergic rhinitis; Z95.5 Presence of coronary angioplasty implant and graft | CPT/HCPCS: G0463 ==

== ENCOUNTER → 2018-03-11 | Outpatient (CLI) | payer OTHER | LOC: M PAIN 09:45 | DX: M47.816 Spondylosis without myelopathy or radiculopathy, lumbar region (principal); M47.817 Spondylosis without myelopathy or radiculopathy, lumbosacral region; E78.00 Pure hypercholesterolemia, unspecified; I25.2 Old myocardial infarction; J30.1 Allergic rhinitis due to pollen; Z79.82 Long term (current) use of aspirin; Z79.899 Other long term (current) drug therapy; Z95.5 Presence of coronary angioplasty implant and graft | CPT/HCPCS: G0463 ==

== ENCOUNTER → 2018-04-08 | Outpatient (CLI) | payer OTHER | LOC: M PAIN 09:15 | DX: M47.816 Spondylosis without myelopathy or radiculopathy, lumbar region (principal); M47.817 Spondylosis without myelopathy or radiculopathy, lumbosacral region; M54.16 Radiculopathy, lumbar region; E78.00 Pure hypercholesterolemia, unspecified; I25.2 Old myocardial infarction; J30.2 Other seasonal allergic rhinitis; Z79.82 Long term (current) use of aspirin; Z79.899 Other long term (current) drug therapy | CPT/HCPCS: G0463 ==

== ENCOUNTER → 2018-05-11 | Outpatient (CLI) | payer OTHER | LOC: M PAIN 09:45 | DX: M47.816 Spondylosis without myelopathy or radiculopathy, lumbar region (principal); M47.817 Spondylosis without myelopathy or radiculopathy, lumbosacral region; M54.16 Radiculopathy, lumbar region; E78.00 Pure hypercholesterolemia, unspecified; I25.2 Old myocardial infarction; J30.2 Other seasonal allergic rhinitis; Z79.82 Long term (current) use of aspirin; Z79.891 Long term (current) use of opiate analgesic; Z79.899 Other long term (current) drug therapy; Z86.79 Personal history of other diseases of the circulatory system | CPT/HCPCS: G0463 ==

== ENCOUNTER → 2018-06-15 | Outpatient (CLI) | payer OTHER | LOC: M PAIN 10:15 | DX: M51.26 Other intervertebral disc displacement, lumbar region (principal); Z79.899 Other long term (current) drug therapy; M54.16 Radiculopathy, lumbar region; J30.1 Allergic rhinitis due to pollen; E78.00 Pure hypercholesterolemia, unspecified; I25.2 Old myocardial infarction; Z87.891 Personal history of nicotine dependence; Z90.49 Acquired absence of other specified parts of digestive tract; Z79.82 Long term (current) use of aspirin; Z79.891 Long term (current) use of opiate analgesic | CPT/HCPCS: G0463 ==

== ENCOUNTER → 2018-07-27 | Outpatient (CLI) | payer OTHER ==
[~2018-07-27] MED LIST changes: -/ACET5TA PO; -/BACL20TA; -/BACL20TA OR; -/BACL20TA PO; -/FEXO18TA OR; -/FEXO18TA PO; -/MIRT15TA PO; -/PRAV20TA PO; -AMIT25TA PO; -BACL10TA2; -COLA100C2; -COLA100C2 OR; -CRES5TAB OR; -CRES5TAB PO; -DOCU10ELUD PO; -FINA5TAB2 PO; -GABA300C2 PO; -IBUP800T OR; -IBUP80TA PO; +ISOVUE-M 300 61% 15ML VIAL (Q9967) As Ordered; -LIDO5DIS; -LIDO5DIS TD; +LIDOCAINE 1% SDV INJ 30 ML VIAL As Ordered; -MULTCAP PO; -MULTIVIT OR; -NEOSYNEPHRINE; -NEUR300C OR; -OMEP20CA3 PO; -PRAV40TA2 PO; -PRIL20CA OR; -TAMS0.4C2 PO; -TOPI25TA2 OR; -ULTR300T OR; -ULTR300T PO; -VISINE OU; +methylPREDNISolone SUSP 40 MG/ML (DEPO-medrol) VIAL (J1030) As Ordered
== END ==
LOC: M PAIN 08:45
DX: M51.16 Intervertebral disc disorders with radiculopathy, lumbar region (principal); M51.17 Intervertebral disc disorders with radiculopathy, lumbosacral region; M48.061 Spinal stenosis, lumbar region without neurogenic claudication; E78.00 Pure hypercholesterolemia, unspecified; I25.2 Old myocardial infarction; Z87.891 Personal history of nicotine dependence; Z79.82 Long term (current) use of aspirin; Z79.891 Long term (current) use of opiate analgesic; Z79.899 Other long term (current) drug therapy; J30.1 Allergic rhinitis due to pollen
CPT/HCPCS: J1030

== ENCOUNTER → 2018-11-24 | Outpatient (CLI) | payer OTHER ==
[~2018-11-24] MED LIST changes: +/ACET5TA PO; +/BACL20TA; +/BACL20TA OR; +/BACL20TA PO; +/FEXO18TA OR; +/FEXO18TA PO; +/MIRT15TA PO; +/PRAV20TA PO; +AMIT25TA PO; +BACL10TA2; +COLA100C2; +COLA100C2 OR; +CRES5TAB OR; +CRES5TAB PO; +DOCU10ELUD PO; +FINA5TAB2 PO; +GABA300C2 PO; +IBUP800T OR; +IBUP80TA PO; -ISOVUE-M 300 61% 15ML VIAL (Q9967) As Ordered; +LIDO5DIS; +LIDO5DIS TD; -LIDOCAINE 1% SDV INJ 30 ML VIAL As Ordered; +MULTCAP PO; +MULTIVIT OR; +NEOSYNEPHRINE; +NEUR300C OR; +OMEP20CA3 PO; +PRAV40TA2 PO; +PRIL20CA OR; +TAMS0.4C2 PO; +TOPI25TA2 OR; +ULTR300T OR; +ULTR300T PO; +VISINE OU; -methylPREDNISolone SUSP 40 MG/ML (DEPO-medrol) VIAL (J1030) As Ordered
--- NOTE | 2018-12-13 00:16 | ECWPNPC ---
PATIENT NAME: CHRISSY ARAUJO : 1950 GENDER: MALE VISIT DATE: 11/24/2018 DISCHARGE DATE: 11/24/18 1205 VISIT LOCKED DATE TIME: PHYSICIAN: ROBERT ORDONEZ MD RESOURCE: ROBERT ORDONEZ MD REASON FOR APPOINTMENT 1. W/C BACK PAIN HISTORY OF PRESENT ILLNESS HISTORY OF PRESENT ILLNESS: PAIN THE PATIENT DESCRIBES THE PAIN... THE PATIENT DESCRIBES THE PAIN... 68 YEAR OLD MALE PATIENT WITH A HISTORY OF CHRONIC LOW BACK PAIN. PATIENT DESCRIBES THE PAIN ACHING AND TENDER WITH A PAIN SCORE OF 6-10/10 DEPENDING ON PHYSICAL ACTIVITY. THE PATIENT WAS HURT IN A WORK RELATED INJURY ON 10/08/2006 WHILE WORKING FOR [employer] WHEN HE WAS WALKING OUT OF THE OFFICE AND HE SLIPPED ON ICE AND FELL ON HIS BACK. THE PATIENT SAYS THAT HE HAS TO STOP DOING CERTAIN ACTIVITIES SUCH WALKING OR CLEANING AFTER A SHORT PERIOD OF TIME DUE TO THIS PAIN. THE PATIENT STATES THAT THE USE OF TRAMADOL ER HELPS HIM REMAIN MOBILE AND FUNCTIONAL FOR LONGER PERIODS OF TIME. PATIENT DENIES UNEXPLAINABLE WEIGHT LOSS, FEVER, CHILLS, NEW CHANGES ON HIS URINARY OR BOWEL CONTROL. FALL RISK SCREENING: SCREENING :NO FALLS IN THE PAST YEAR CURRENT MEDICATIONS TAKING OMEPRAZOLE 40 MG CAPSULE DELAYED RELEASE ORAL ONCE DAILY TAKING LORATADINE 10 MG TABLET 1 TABLET ORALLY ONCE A DAY NEEDED TAKING ATORVASTATIN CALCIUM 40 MG TABLET 1 TABLET ORALLY ONCE A DAY TAKING METOPROLOL TARTRATE 25 MG TABLET .5 TAB ORALLY BID TAKING ASPIRIN 81 MG TABLET CHEWABLE 1 TABLET ORALLY ONCE A DAY TAKING RAMIPRIL 2.5 MG CAPSULE 1 CAPSULE ORALLY BID TAKING NITROGLYCERIN 0.4 MG TABLET SUBLINGUAL SUBLINGUAL TAKING FLUOXETINE HCL 40 MG CAPSULE 1 CAPSULE IN THE MORNING ORALLY ONCE A DAY TAKING VITAMIN B COMPLEX - CAPSULE 1 TAB ORALLY DAILY TAKING ISOSORBIDE MONONITRATE ER 60 MG TABLET EXTENDED RELEASE 24 HOUR 1 TABLET IN THE MORNING ORALLY ONCE A DAY TAKING GABAPENTIN 600 MG TABLET 1 CAPSULE ORALLY TAKE 1 CAP IN AM, ONE CAP AT 3 PM AND 2 CAPS AT BEDTIME TAKING CELECOXIB 200 MG CAPSULE 1 CAPSULE WITH FOOD ORALLY ONCE A DAY NOT-TAKING TRAMADOL HCL ER 300 MG TABLET EXTENDED RELEASE 24 HOUR 1 TABLET ORALLY ONCE A DAY CHRONIC PAIN MDD=1 NOT-TAKING NORCO 5-325 MG TABLET 1 TABLET NEEDED ORALLY EVERY 12 HRS PRN SEVERE PAIN MDD=2 NOT-TAKING PREDNISONE 10 MG TABLET 1 TABLET ORALLY TAKE 5 TAB X2 DAYS, 4 TAB X 2 DAY, 3 TAB X 2 DAY, 2 TAB X 2 DAY, 1 TAB X 2 DAYS MEDICATION LIST REVIEWED AND RECONCILED WITH THE PATIENT PAST MEDICAL HISTORY PROSTATE HIGH CHOLESTEROL IN HEART STENT ALLERGIES POLLEN SURGICAL HISTORY INGUINAL HERNIA REPAIR AND APPENDECTOMY 1971 CHOLECYSTECTOMY 12/20 COLONOSCOPY 05/2018 FAMILY HISTORY FATHER: 46 YRS, DIAGNOSED WITH HEART DISEASE MOTHER: 52 YRS, COMPLICATIONS AFTER GALL BLADDER SURGERY SIBLINGS: ALIVE, THROAT CANCER, DIAGNOSED WITH CANCER SOCIAL HISTORY GENERAL: TOBACCO USE ARE YOU A:FORMER SMOKER HOW LONG HAS IT BEEN SINCE YOU LAST SMOKED?5-10 YEARS ALCOHOL SCREENING DID YOU HAVE A DRINK CONTAINING ALCOHOL IN THE PAST YEAR?NO POINTS0 INTERPRETATIONNEGATIVE RECREATIONAL DRUG USE DRUG USE?NO CAFFEINE CAFFEINE USE?YES HOW OFTEN AND HOW MUCH? 4 CUPS COFFEE PER DAY CATHOLIC [id number] ZOROASTRIAN LANGUAGE LANGUAGES SPOKEN:[place] LEARNING BARRIERS / SPECIAL NEEDS CHANGE FROM LAST VISIT?NO BARRIERS TO LEARNING?NO HEARING IMPAIRED?YES :HEARING AIDES VISION IMPAIRED?YES :CORRECTIVE LENSES COGNITIVELY IMPAIRED?NO READINESS TO LEARN?YES LEARNING PREFERENCES?NO LEARNING CAPABILITIES PRESENT?YES EMOTIONAL BARRIERS?NO SPECIAL DEVICES?NO ENVIRONMENTAL PROTECTION INSPECTOR NEEDED?NO DIET: REGULAR. NEW PATIENT PAIN DIARY TODAY'S VISITNOTES FROM 0-10, WHAT LEVEL IS YOUR PAIN TODAY?6 PAIN CLINIC PFS, CLERGY, PUBLIC HEALTH REFERRALS PFS REFERRAL NEEDED?NO CLERGY REFERRAL NEEDED?NO PUBLIC HEALTH REFERRAL NEEDED?NO WAS THE PROVIDER NOTIFIED OF ANY PERTINENT INFO?YES HAS THE PATIENT BEEN EDUCATED REGARDING HIS/HER PLAN OF CARE?YES HAS THE PATIENT BEEN EDUCATED REGARDING PAIN, THE RISK FOR PAIN, THE IMPORTANCE OF EFFECTIVE PAIN MANAGEMENT, AND THE PAIN ASSESSMENT PROCESS?YES ADVANCE DIRECTIVE ADVANCE DIRECTIVE DISCUSSED WITH PATIENT:YES DECLINES HCP INFORMATION AT THIS TIME REVIEWED WITH PT 04/08/18 5635 BVREVIEWED WITH PATIENT 11/24/18 1059 JS. HOSPITALIZATION/MAJOR DIAGNOSTIC PROCEDURE SURGERIES HEART AACK REVIEW OF SYSTEMS REVIEWED BY: PROVIDER: ROBERT ORDONEZ MD . CONSTITUTIONAL: ANY CHANGE IN YOUR MEDICAL CONDITION? NO . CHILLS NO . FEVER NO . INFECTION: DO YOU HAVE NEW INFECTIONS? NO . DO YOU HAVE HISTORY OF MRSA? NO . MUSCULOSKELETAL: ANY NEW PATTERNS OF PAIN OR NUMBNESS? NO . GASTROENTEROLOGY: ANY NEW CHANGE IN BOWEL CONTROL? NO . GENITOURINARY: ANY NEW CHANGE IN BLADDER CONTROL? NO . IS THERE A CHANCE YOU COULD BE ? NO . HEMATOLOGY/LYMPH: DO YOU TAKE ANY BLOOD THINNERS? (FOR EXAMPLE- COUMADIN, PLAVIX, AGGRENOX, PLATEL, PRADAXA, OR XARELTO) NO . WHEN WAS YOUR LAST DOSE? DATE: TIME: . NEUROLOGY: HAVE YOU FALLEN IN THE PAST 12 MONTHS? NO . ANY NEW EXTREMITY NUMBNESS OR WEAKNESS? NO . CARDIOLOGY: DO YOU HAVE A PACEMAKER OR DEFIBRILLATOR? NO . RESPIRATORY: HAVE YOU BEEN SICK IN THE PAST WEEK? NO . FEVER NO . FLU LIKE SYMPTOMS? NO . COUGH NO . INTEGUMENTARY: DO YOU HAVE ANY RASHES OR OPEN SORES? NO . ALLERGIC/IMMUNO: ARE YOU ALLERGIC TO IV DYE? NO . ANY NEW ALLERGIES? NO . PSYCHIATRIC: DO YOU HAVE THOUGHTS OF HURTING YOURSELF OR SOMEONE ELSE? NO . ARE YOU ABUSED, NEGLECTED, OR IN AN UNSAFE ENVIRONMENT? NO . ENDOCRINOLOGY: ARE YOU DIABETIC? NO . OTHER: DO YOU NEED ANY PRESCRIPTIONS? YES . IF YES, PLEASE LIST: ____TRAMADOL . ANY NEW PROBLEMS WITH YOUR MEDICATIONS? NO . WHEN DID YOU LAST EAT? ____ . WHEN DID YOU LAST DRINK? ____ . WHAT DID YOU LAST DRINK? ____ . NAME OF PERSON DRIVING YOU HOME? ____ . DO YOU HAVE ANY OTHER QUESTIONS OR CONCERNS NO . VITAL SIGNS WT 205 LBS, HT 72 IN, BMI 27.80 INDEX, BP 124/78 MM HG, HR 47 /MIN, RR 18 /MIN, TEMP 97.8 F, OXYGEN SAT % 94%, SAFE IN ENV? (Y/N) YES, NA INITIALS [place] 10:54, REVIEWED BY: MILLA. EXAMINATION GENERAL EXAMINATION: PATIENT IS ALERT O X 3 AND COOPERATIVE. TENDERNESS IN THE LOW BACK AREA. PAIN INCREASES OVER THE LUMBAR FACET JOINTS WITH EXTENSION AND LATERAL ROTATION OF THE BACK. 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 ASSESSMENTS SPONDYLOSIS OF LUMBAR REGION WITHOUT MYELOPATHY OR RADICULOPATHY - M47.816 (PRIMARY) TREATMENT SPONDYLOSIS OF LUMBAR REGION WITHOUT MYELOPATHY OR RADICULOPATHY CLINICAL NOTES: WE DISCUSSED SEVERAL ISSUES WITH MR. ARAUJO'S PAIN MANAGEMENT CASE. I WOULD LIKE TO GET A CLEARANCE FROM DR. MILLER FOR INJECTIONS DUE TO THE PATIENT'S BRADYCARDIA. DUE TO THE LUMBAR SPONDYLOSIS, I WOULD LIKE TO MOVE FORWARD WITH A LUMBAR FACET THERAPEUTIC BLOCK AT THIS TIME. WE DISCUSSED THE BENEFITS, RISKS, AND ALTERNATIVES OF THE INJECTION AND THE PATIENT WOULD LIKE TO PROCEED. THE PATIENT WILL NOT BE BOOK FOR THE PROCEDURE UNTIL I CHECK THE CLEARANCE. I DO NOT WANT TO DISCONTINUE THE TRAMADOL ER 300MG AND CHANGE IT TO TRAMADOL 50MG 6 TABLETS PER DAY. I WOULD LIKE THE PATIENT TO CONTINUE USING THE TRAMADOL ER 300MG DIRECTED BECAUSE THE PATIENT REPORTS THAT IT KEEPS HIM MOBILE AND FUNCTIONAL FOR LONGER PERIODS OF TIME. THE DELIVERY OF THE LONG ACTING MEDICATION IS MORE RELIABLE AND SAFER THAN MANY PILLS PER DAY. ISTOP _[id number] WAS REVIEWED. WE WILL PERFORM A PILL COUNTING AND A URINE TOXICOLOGY TODAY. THE PATIENT WILL FOLLOW UP IN 3 MONTHS. INSTRUCTIONS WERE GIVEN, QUESTIONS WERE ANSWERED, PATIENT REPORTS UNDERSTANDING AND AGREES WITH THE PLAN. I, SAJI CARRANZA, DOCUMENTED THE ABOVE INFORMATION ACTING A SCRIBE FOR DR. ORDONEZ. I HAVE REVIEWED THE ABOVE DOCUMENT, WRITTEN BY SAJI GRADNAIBStephanie AND I VERIFY THAT IT IS ACCURATE. PROCEDURES PN WORKMANS' COMP OPINION IN YOUR OPINION, WAS THE INCIDENT THAT THE PATIENT DESCRIBED THE COMPETENT MEDICAL CAUSE OF THIS INJURY/ILLNESS? YES ARE THE PATIENT'S COMPLAINTS CONSISTENT WITH HIS/HER HISTORY OF THE INJURY/ILLNESS? YES IS THE PATIENT'S HISTORY OF THE INJURY/ILLNESS CONSISTENT WITH YOUR OBJECTIVE FINDING? YES WHAT IS THE PERCENTAGE OF TEMPORARY IMPAIRMENT? MODERATE TO MARKED = 66.7% IS THE PATIENT WORKING? NO DOCTOR ON SITE: ROBERT VIRGEN MD PROCEDURE CODES FA211 ESTABILISHED PATIENT [facility] FACILITY CHARGE G8427 CURRENT MEDS W/DOSAGES DOCUMENTED [id number] PAIN ASSESS POS TOOL F/U PLAN DOC DISPOSITION & COMMUNICATION FOLLOW UP 3 MONTHS (REASON: W/C POST PROC) ELECTRONICALLY SIGNED BY ROBERT ORDONEZ MD, MD ON 12/12/2018 AT 06:20 PM EST DISCLAIMER : THIS IS A VISIT SUMMARY EXTRACTED FROM THE [employer] CHART. IT IS NOT A COPY OF THE [employer] PROGRESS NOTE. TOO
== END ==
LOC: M PAIN 11:15
PROVIDERS: ATTEND Anesthesiology
DX: M47.816 Spondylosis without myelopathy or radiculopathy, lumbar region (principal); G89.29 Other chronic pain; I25.2 Old myocardial infarction; Z79.82 Long term (current) use of aspirin; Z79.899 Other long term (current) drug therapy; Z87.891 Personal history of nicotine dependence

== ENCOUNTER → 2019-01-06 | Outpatient (CLI) | payer OTHER ==
[~2019-01-06] MED LIST changes: +BUPIVACAINE HCL 0.25% 30 ML VIAL As Ordered ONE; +ISOVUE-M 300 61% 15ML VIAL (Q9967) As Ordered ONE; +LIDOCAINE 1% SDV INJ 30 ML VIAL As Ordered ONE; +TRIAMCINOLONE ACETONIDE SUSP 40 MG/ML VIAL (J3301) As Ordered ONE; +diazePAM 5 MG TAB As Ordered ONE
--- NOTE | 2019-01-06 15:47 | REP ---
Partial lumbar spine series: Two views . History: Injection procedure for pain. 23 seconds of fluoroscopy time is reported. Findings: A sequence of two fluoroscopically obtained last image hold procedural spot radiographs of the lumbar spine document needle position and contrast injection associated with injection procedure. Electronically Signed by Mateo Danielle MD 01/06/2019 03:38 P
--- NOTE | 2019-01-23 23:28 | ECWPNPC ---
PATIENT NAME: CHRISSY ARAUJO : 1950 GENDER: MALE VISIT DATE: 01/06/2019 DISCHARGE DATE: 01/06/19 1447 VISIT LOCKED DATE TIME: PHYSICIAN: ROBERT ORDONEZ MD RESOURCE: ROBERT ORDONEZ MD REASON FOR APPOINTMENT 1. BILATERAL L4/5-L5/S1 THERAPEUTIC LUMBAR FACET BLOCK HISTORY OF PRESENT ILLNESS HISTORY OF PRESENT ILLNESS: PAIN THE PATIENT DESCRIBES THE PAIN... FALL RISK SCREENING: SCREENING : NO FALLS IN THE PAST YEAR. CURRENT MEDICATIONS TAKING OMEPRAZOLE 40 MG CAPSULE DELAYED RELEASE ORAL ONCE DAILY, NOTES: 01/06/19 0700 TAKING LORATADINE 10 MG TABLET 1 TABLET ORALLY ONCE A DAY NEEDED, NOTES: NONE RECENTLY TAKING ATORVASTATIN CALCIUM 40 MG TABLET 1 TABLET ORALLY ONCE A DAY, NOTES: 01/05/192029 TAKING METOPROLOL TARTRATE 25 MG TABLET .5 TAB ORALLY DAILY, NOTES: 01/04/19829 TAKING ASPIRIN 81 MG TABLET CHEWABLE 1 TABLET ORALLY ONCE A DAY, NOTES: 01/03/19 TAKING RAMIPRIL 2.5 MG CAPSULE 1 CAPSULE ORALLY BID, NOTES: 01/05/192029 TAKING NITROGLYCERIN 0.4 MG TABLET SUBLINGUAL SUBLINGUAL , NOTES: NONE RECENTLY TAKING FLUOXETINE HCL 40 MG CAPSULE 1 CAPSULE IN THE MORNING ORALLY ONCE A DAY, NOTES: 01/05/19829 TAKING GABAPENTIN 600 MG TABLET 1 CAPSULE ORALLY TAKE 1 CAP IN AM, ONE CAP AT 3 PM AND 2 CAPS AT BEDTIME, NOTES: 01/06/19829 NOT-TAKING VITAMIN B COMPLEX - CAPSULE 1 TAB ORALLY DAILY NOT-TAKING ISOSORBIDE MONONITRATE ER 60 MG TABLET EXTENDED RELEASE 24 HOUR 1 TABLET IN THE MORNING ORALLY ONCE A DAY NOT-TAKING CELECOXIB 200 MG CAPSULE 1 CAPSULE WITH FOOD ORALLY ONCE A DAY NOT-TAKING TRAMADOL HCL ER 300 MG TABLET EXTENDED RELEASE 24 HOUR 1 TABLET ORALLY ONCE A DAY CHRONIC PAIN MDD=1 NOT-TAKING NORCO 5-325 MG TABLET 1 TABLET NEEDED ORALLY EVERY 12 HRS PRN SEVERE PAIN MDD=2 NOT-TAKING PREDNISONE 10 MG TABLET 1 TABLET ORALLY TAKE 5 TAB X2 DAYS, 4 TAB X 2 DAY, 3 TAB X 2 DAY, 2 TAB X 2 DAY, 1 TAB X 2 DAYS MEDICATION LIST REVIEWED AND RECONCILED WITH THE PATIENT PAST MEDICAL HISTORY PROSTATE HIGH CHOLESTEROL NC HEART STENT LUMBAR SPONDYLOSIS DEPRESSION ACID REFLUX ALLERGIES POLLEN SURGICAL HISTORY INGUINAL HERNIA REPAIR AND APPENDECTOMY 1971 CHOLECYSTECTOMY 12/20 COLONOSCOPY 05/2018 FAMILY HISTORY FATHER: 46 YRS, DIAGNOSED WITH HEART DISEASE MOTHER: 52 YRS, COMPLICATIONS AFTER GALL BLADDER SURGERY SIBLINGS: ALIVE, THROAT CANCER, CANCER SOCIAL HISTORY GENERAL: TOBACCO USE ARE YOU A:FORMER SMOKER HOW LONG HAS IT BEEN SINCE YOU LAST SMOKED?5-10 YEARS ALCOHOL SCREENING DID YOU HAVE A DRINK CONTAINING ALCOHOL IN THE PAST YEAR?NO POINTS0 INTERPRETATIONNEGATIVE RECREATIONAL DRUG USE DRUG USE?NO CAFFEINE CAFFEINE USE?YES HOW OFTEN AND HOW MUCH? 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 DIET: REGULAR. EXERCISE: STRETCHES EVERY OTHER DAY, WALKS WHEN WEATHER ALLOWS. NEW PATIENT PAIN DIARY TODAY'S VISITNOTES FROM 0-10, WHAT LEVEL IS YOUR PAIN TODAY?7 PAIN CLINIC PFS, CLERGY, PUBLIC HEALTH REFERRALS PFS REFERRAL NEEDED?NO CLERGY REFERRAL NEEDED?NO PUBLIC HEALTH REFERRAL NEEDED?NO WAS THE PROVIDER NOTIFIED OF ANY PERTINENT INFO?YES HAS THE PATIENT BEEN EDUCATED REGARDING HIS/HER PLAN OF CARE?YES HAS THE PATIENT BEEN EDUCATED REGARDING PAIN, THE RISK FOR PAIN, THE IMPORTANCE OF EFFECTIVE PAIN MANAGEMENT, AND THE PAIN ASSESSMENT PROCESS?YES ADVANCE DIRECTIVE ADVANCE DIRECTIVE DISCUSSED WITH PATIENT:YES DECLINES HCP INFORMATION AT THIS TIME REVIEWED WITH PT 04/08/18 7122 BVREVIEWED WITH PATIENT 11/24/18 1055 JS. HOSPITALIZATION/MAJOR DIAGNOSTIC PROCEDURE SURGERIES HEART ATTACK REVIEW OF SYSTEMS REVIEWED BY: PROVIDER: . CONSTITUTIONAL: ANY CHANGE IN YOUR MEDICAL CONDITION? NO . CHILLS NO . FEVER NO . INFECTION: DO YOU HAVE NEW INFECTIONS? NO . DO YOU HAVE HISTORY OF MRSA? NO . MUSCULOSKELETAL: ANY NEW PATTERNS OF PAIN OR NUMBNESS? NO . GASTROENTEROLOGY: ANY NEW CHANGE IN BOWEL CONTROL? NO . GENITOURINARY: ANY NEW CHANGE IN BLADDER CONTROL? NO . IS THERE A CHANCE YOU COULD BE ? NO . HEMATOLOGY/LYMPH: DO YOU TAKE ANY BLOOD THINNERS? (FOR EXAMPLE- COUMADIN, PLAVIX, AGGRENOX, PLATEL, PRADAXA, OR XARELTO) NO. DOES TAKE ASPIRIN - LAST DOSE 01-05-19 0800. . WHEN WAS YOUR LAST DOSE? DATE: TIME: . NEUROLOGY: HAVE YOU FALLEN IN THE PAST 12 MONTHS? NO . ANY NEW EXTREMITY NUMBNESS OR WEAKNESS? NO . CARDIOLOGY: DO YOU HAVE A PACEMAKER OR DEFIBRILLATOR? NO . RESPIRATORY: HAVE YOU BEEN SICK IN THE PAST WEEK? NO . FEVER NO . FLU LIKE SYMPTOMS? NO . COUGH NO . INTEGUMENTARY: DO YOU HAVE ANY RASHES OR OPEN SORES? NO . ALLERGIC/IMMUNO: ARE YOU ALLERGIC TO IV DYE? NO . ANY NEW ALLERGIES? NO . PSYCHIATRIC: DO YOU HAVE THOUGHTS OF HURTING YOURSELF OR SOMEONE ELSE? NO . ARE YOU ABUSED, NEGLECTED, OR IN AN UNSAFE ENVIRONMENT? NO . ENDOCRINOLOGY: ARE YOU DIABETIC? NO . OTHER: DO YOU NEED ANY PRESCRIPTIONS? NO . IF YES, PLEASE LIST: ____ . ANY NEW PROBLEMS WITH YOUR MEDICATIONS? NO . WHEN DID YOU LAST EAT? 01-05-191929 . WHEN DID YOU LAST DRINK? 01-05-192099 . WHAT DID YOU LAST DRINK? WATER . NAME OF PERSON DRIVING YOU HOME? LETA () . DO YOU HAVE ANY OTHER QUESTIONS OR CONCERNS NO . VITAL SIGNS WT 203.4 LBS, HT 72 IN, BMI 27.58 INDEX, BP 132/71 MM HG, HR 55 /MIN, RR 18 /MIN, TEMP 97.7 F, OXYGEN SAT % 99%, NA INITIALS SC 11:32, REVIEWED BY: ESTEE. 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 YES ARE THE PATIENT'S COMPLAINTS CONSISTENT WITH HIS/HER HISTORY OF THE INJURY/ILLNESS? YES IS THE PATIENT'S HISTORY OF THE INJURY/ILLNESS CONSISTENT WITH YOUR OBJECTIVE FINDING? YES WHAT IS THE PERCENTAGE OF TEMPORARY IMPAIRMENT? MODERATE TO MARKED = 66.7% IS THE PATIENT WORKING? NO DOCTOR ON SITE: MD JOSEP KRAFT LUMBAR FACET BLOCK THERAPEUTIC PRE PROCEDURE DIAGNOSIS LUMBAR SPONDYLOSIS, LUMBOSACRAL SPONDYLOSIS POST PROCEDURE DIAGNOSIS LUMBAR SPONDYLOSIS, LUMBOSACRAL SPONDYLOSIS PROCEDURE BILATERAL L4-L5 AND BILATERAL L5-S1 LUMBAR FACET THERAPEUTIC BLOCK SURGEON DR. ROBERT ORDONEZ SKIN DIVING TEACHER NONE ANESTHESIA LOCAL PRE PROCEDURE NOTE THE PATIENT HAS A HISTORY OF CHRONIC LOW BACK PAIN. I EVALUATE THE PATIENT AND REVIEWED THE CHART. I WENT OVER THE RISKS, ALTERNATIVES, AND BENEFITS ASSOCIATED WITH THIS PROCEDURE. THE PATIENT WOULD LIKE TO PROCEED AND GIVE CONSENT TO PERFORMED THE PROCEDURE. THE PATIENT DENIES UNEXPLAINABLE WEIGHT LOSS, FEVER, CHILLS, OR NEW CHANGES IN URINARY OR BOWEL CONTROL DESCRIPTION OF PROCEDURE THE PATIENT WAS BROUGHT TO THE PROCEDURE ROOM AND PLACED IN THE PRONE POSITION. THE LUMBOSACRAL AREA WAS CLEANED WITH CHLORAPREP SOLUTION AND DRAPED ASEPTICALLY. THE PROCEDURE WAS DONE UNDER STERILE CONDITIONS. I CHECKED LATERALITY AND THE LEVEL WHERE THE PROCEDURE WAS GOING TO BE PERFORMED WITH THE PATIENT AND THE SUPPORTING STAFF AT THE MOMENT OF THE TIME OUT IN THE PROCEDURE ROOM. UNDER FLUOROSCOPIC GUIDANCE, THE TARGET POINT WAS SELECTED AT THE RIGHT AND LEFT L4-L5 AND RIGHT AND LEFT L5-S1 FACET JOINT. TARGET POINT WAS SELECTED AFTER LATERAL ROTATION AND TILT OF THE MAGNIFIER OF THE C-ARM. LIDOCAINE 0.5% WAS USED TO NUMB THE SKIN AND THE SUBCUTANEOUS TISSUE BELOW IT. SPINAL NEEDLES, 22-GAUGE, WERE ADVANCED UNDER FLUOROSCOPIC GUIDANCE AND FOLLOWING PATIENT FEEDBACK UNTIL THE TARGETS WERE TOUCHED. THE POSITION OF THE NEEDLES WAS VERIFIED WITH AP AND LATERAL VIEWS. AFTER PROPER POSITION OF THE NEEDLES WAS ACHIEVED, ISOVUE-M DYE 30% 0.1 ML WAS INJECTED SHOWING ADEQUATE SPREAD OF THE DYE. THEN A SOLUTION OF 1.9 ML OF BUPIVACAINE 0.125% OF KENALOG 10 MG WAS INJECTED AT EACH SITE. THERE WAS NO EVIDENCE OF BLOOD, PARESTHESIA OR CEREBROSPINAL FLUID DURING THE PROCEDURE. THE PATIENT WAS SENT TO THE RECOVERY ROOM. THE PATIENT WAS MOVING THE EXTREMITIES AND DOING WELL. THERE WAS NO COMPLICATION DURING THE PROCEDURE. FLUOROSCOPY TIME WAS 23 SECONDS POST PROCEDURE NOTE THE PATIENT WILL BE SEEN IN A FOLLOW UP IN THE NEXT FEW WEEKS. INSTRUCTIONS WERE GIVEN, QUESTIONS WERE ANSWERED, AND THE PATIENT EXPRESSED UNDERSTANDING AND AGREES WITH THE PLAN. I, SAJI CARRANZA, DOCUMENTED THE ABOVE INFORMATION ACTING A SCRIBE FOR DR. ORDONEZ. I HAVE REVIEWED THE ABOVE DOCUMENT, WRITTEN BY SAJI RICH AND I VERIFY THAT IT IS ACCURATE. DIAGNOSTIC IMAGING [facility] FACET BLOCK (PAIN)[id number] PROCEDURE CODES 6045F RADXPS IN END [id number] PXD [id number] INJ PARAVERT F JNT L/S 1 LEV, MODIFIERS: 50 [id number] INJ PARAVERT F JNT L/S 2 LEV, MODIFIERS: 50 DISPOSITION & COMMUNICATION FOLLOW UP 3 WEEKS ELECTRONICALLY SIGNED BY ROBERT ORDONEZ MD, MD ON 01/23/2019 AT 07:39 PM EDT DISCLAIMER : THIS IS A VISIT SUMMARY EXTRACTED FROM THE [employer] CHART. IT IS NOT A COPY OF THE [employer] PROGRESS NOTE. MTDD
== END ==
LOC: M PAIN 11:30
PROVIDERS: ATTEND Anesthesiology
DX: G89.29 Other chronic pain (principal); M47.816 Spondylosis without myelopathy or radiculopathy, lumbar region; M47.817 Spondylosis without myelopathy or radiculopathy, lumbosacral region; E78.00 Pure hypercholesterolemia, unspecified; I25.2 Old myocardial infarction; K21.9 Gastro-esophageal reflux disease without esophagitis; F32.9 Major depressive disorder, single episode, unspecified; J30.2 Other seasonal allergic rhinitis; Z79.82 Long term (current) use of aspirin; Z79.899 Other long term (current) drug therapy; Z86.79 Personal history of other diseases of the circulatory system; Z87.891 Personal history of nicotine dependence
CPT/HCPCS: 64493; 64494; J3301; Q9967

== ENCOUNTER → 2019-02-18 | Outpatient (CLI) | payer OTHER ==
[~2019-02-18] MED LIST changes: -/ACET5TA PO; -/BACL20TA; -/BACL20TA OR; -/BACL20TA PO; -/MIRT15TA PO; -/PRAV20TA PO; +ACET1TAB18 PO; +BACL1TAB9; +BACL1TAB9 OR; +BACL1TAB9 PO; -BUPIVACAINE HCL 0.25% 30 ML VIAL As Ordered ONE; -DOCU10ELUD PO; +DOCU5LIQ PO; -ISOVUE-M 300 61% 15ML VIAL (Q9967) As Ordered ONE; -LIDOCAINE 1% SDV INJ 30 ML VIAL As Ordered ONE; +MIRT1TAB20 PO; +PRAV1TAB39 PO; -TRIAMCINOLONE ACETONIDE SUSP 40 MG/ML VIAL (J3301) As Ordered ONE; -diazePAM 5 MG TAB As Ordered ONE
--- NOTE | 2019-03-03 01:20 | ECWPNPC ---
PATIENT NAME: CHRISSY ARAUJO : 1950 GENDER: MALE VISIT DATE: 02/18/2019 DISCHARGE DATE: 02/18/1949 VISIT LOCKED DATE TIME: PHYSICIAN: ROBERT ORDONEZ MD RESOURCE: ROBERT ORDONEZ MD REASON FOR APPOINTMENT 1. W/C, LBP HISTORY OF PRESENT ILLNESS HISTORY OF PRESENT ILLNESS: PAIN THE PATIENT DESCRIBES THE PAIN... 68 YEAR OLD MALE PATIENT WITH A HISTORY OF CHRONIC LOW BACK PAIN. THE PATIENT DESCRIBES THE PAIN ACHING AND TENDER WITH A PAIN SCORE OF 1-3/10 DEPENDING ON PHYSICAL ACTIVITY. 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 THE PATIENT SAYS HE IS VERY HAPPY WITH RESULTS OF HIS BILATERAL THERAPEUTIC LUMBAR FACET BLOCK PERFORMED ON 01/06/2019. HE REPORTS SINCE THE LUMBAR FACET BLOCK PROCEDURE, HIS OVERALL IMPROVEMENT HAS INCREASED OVER 50 PERCENT AND HE NOW HAS THE ABILITY TO MOVE MORE AND DO DAILY ACTIVITIES WITH MORE EASE, SUCH CLEANING HIS HOUSE AND CAR. THE PATIENT SAYS HE IS STILL USING TRAMADOL ER EVERY DAY FOR PAIN RELIEF. PATIENT DENIES UNEXPLAINABLE WEIGHT LOSS, FEVER, CHILLS, NEW CHANGES ON HIS URINARY OR BOWEL CONTROL. FALL RISK SCREENING: SCREENING :NO FALLS REPORTED IN THE LAST YEAR CURRENT MEDICATIONS TAKING OMEPRAZOLE 40 MG CAPSULE DELAYED RELEASE ORAL ONCE DAILY TAKING LORATADINE 10 MG TABLET 1 TABLET ORALLY ONCE A DAY NEEDED, NOTES: NONE RECENTLY TAKING ATORVASTATIN CALCIUM 40 MG TABLET 1 TABLET ORALLY ONCE A DAY TAKING METOPROLOL TARTRATE 25 MG TABLET 0.5 TAB ORALLY DAILY TAKING ASPIRIN 81 MG TABLET CHEWABLE 1 TABLET ORALLY ONCE A DAY TAKING RAMIPRIL 2.5 MG CAPSULE 1 CAPSULE ORALLY BID TAKING NITROGLYCERIN 0.4 MG TABLET SUBLINGUAL SUBLINGUAL , NOTES: NONE RECENTLY TAKING FLUOXETINE HCL 40 MG CAPSULE 1 CAPSULE IN THE MORNING ORALLY ONCE A DAY TAKING GABAPENTIN 600 MG TABLET 1 CAPSULE ORALLY TAKE 1 CAP IN AM, ONE CAP AT 3 PM AND 2 CAPS AT BEDTIME TAKING TRAMADOL HCL ER 300 MG TABLET EXTENDED RELEASE 24 HOUR 1 TABLET ORALLY ONCE A DAY CHRONIC PAIN MDD=1 NOT-TAKING VITAMIN B COMPLEX - CAPSULE 1 TAB ORALLY DAILY NOT-TAKING ISOSORBIDE MONONITRATE ER 60 MG TABLET EXTENDED RELEASE 24 HOUR 1 TABLET IN THE MORNING ORALLY ONCE A DAY NOT-TAKING CELECOXIB 200 MG CAPSULE 1 CAPSULE WITH FOOD ORALLY ONCE A DAY NOT-TAKING NORCO 5-325 MG TABLET 1 TABLET NEEDED ORALLY EVERY 12 HRS PRN SEVERE PAIN MDD=2 NOT-TAKING PREDNISONE 10 MG TABLET 1 TABLET ORALLY TAKE 5 TAB X2 DAYS, 4 TAB X 2 DAY, 3 TAB X 2 DAY, 2 TAB X 2 DAY, 1 TAB X 2 DAYS MEDICATION LIST REVIEWED AND RECONCILED WITH THE PATIENT PAST MEDICAL HISTORY PROSTATE HIGH CHOLESTEROL CO HEART STENT LUMBAR SPONDYLOSIS DEPRESSION ACID REFLUX ALLERGIES POLLEN SURGICAL HISTORY INGUINAL HERNIA REPAIR AND APPENDECTOMY 1971 CHOLECYSTECTOMY 12/20 COLONOSCOPY 05/2018 FAMILY HISTORY FATHER: 46 YRS, DIAGNOSED WITH HEART DISEASE MOTHER: 52 YRS, COMPLICATIONS AFTER GALL BLADDER SURGERY SIBLINGS: ALIVE, THROAT CANCER, CANCER SOCIAL HISTORY GENERAL: TOBACCO USE ARE YOU A:FORMER SMOKER HOW LONG HAS IT BEEN SINCE YOU LAST SMOKED?5-10 YEARS ALCOHOL SCREENING DID YOU HAVE A DRINK CONTAINING ALCOHOL IN THE PAST YEAR?NO POINTS0 INTERPRETATIONNEGATIVE RECREATIONAL DRUG USE DRUG USE?NO CAFFEINE CAFFEINE USE?YES HOW OFTEN AND HOW MUCH? 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 DIET: REGULAR. EXERCISE: STRETCHES EVERY OTHER DAY, WALKS WHEN WEATHER ALLOWS. NEW PATIENT PAIN DIARY TODAY'S VISITNOTES FROM 0-10, WHAT LEVEL IS YOUR PAIN TODAY?7 PAIN CLINIC PFS, CLERGY, PUBLIC HEALTH REFERRALS PFS REFERRAL NEEDED?NO CLERGY REFERRAL NEEDED?NO PUBLIC HEALTH REFERRAL NEEDED?NO WAS THE PROVIDER NOTIFIED OF ANY PERTINENT INFO?YES HAS THE PATIENT BEEN EDUCATED REGARDING HIS/HER PLAN OF CARE?YES HAS THE PATIENT BEEN EDUCATED REGARDING PAIN, THE RISK FOR PAIN, THE IMPORTANCE OF EFFECTIVE PAIN MANAGEMENT, AND THE PAIN ASSESSMENT PROCESS?YES ADVANCE DIRECTIVE ADVANCE DIRECTIVE DISCUSSED WITH PATIENT:YES DECLINES HCP INFORMATION AT THIS TIME REVIEWED WITH PT 04/08/18 2810 BVREVIEWED WITH PATIENT 11/24/18 1054 JS. HOSPITALIZATION/MAJOR DIAGNOSTIC PROCEDURE SURGERIES HEART ATTACK REVIEW OF SYSTEMS REVIEWED BY: PROVIDER: ROBERT ORDONEZ MD . CONSTITUTIONAL: ANY CHANGE IN YOUR MEDICAL CONDITION? NO . CHILLS NO . FEVER NO . INFECTION: DO YOU HAVE NEW INFECTIONS? NO . DO YOU HAVE HISTORY OF MRSA? NO . MUSCULOSKELETAL: ANY NEW PATTERNS OF PAIN OR NUMBNESS? NO . GASTROENTEROLOGY: ANY NEW CHANGE IN BOWEL CONTROL? NO . GENITOURINARY: ANY NEW CHANGE IN BLADDER CONTROL? NO . IS THERE A CHANCE YOU COULD BE ? NO . HEMATOLOGY/LYMPH: DO YOU TAKE ANY BLOOD THINNERS? (FOR EXAMPLE- COUMADIN, PLAVIX, AGGRENOX, PLATEL, PRADAXA, OR XARELTO) NO . WHEN WAS YOUR LAST DOSE? DATE: TIME: . NEUROLOGY: HAVE YOU FALLEN IN THE PAST 12 MONTHS? NO . ANY NEW EXTREMITY NUMBNESS OR WEAKNESS? NO . CARDIOLOGY: DO YOU HAVE A PACEMAKER OR DEFIBRILLATOR? NO . RESPIRATORY: HAVE YOU BEEN SICK IN THE PAST WEEK? NO . FEVER NO . FLU LIKE SYMPTOMS? NO . COUGH NO . INTEGUMENTARY: DO YOU HAVE ANY RASHES OR OPEN SORES? NO . ALLERGIC/IMMUNO: ARE YOU ALLERGIC TO IV DYE? NO . ANY NEW ALLERGIES? NO . PSYCHIATRIC: DO YOU HAVE THOUGHTS OF HURTING YOURSELF OR SOMEONE ELSE? NO . ARE YOU ABUSED, NEGLECTED, OR IN AN UNSAFE ENVIRONMENT? NO . ENDOCRINOLOGY: ARE YOU DIABETIC? NO . OTHER: DO YOU NEED ANY PRESCRIPTIONS? TRAMODOL . IF YES, PLEASE LIST: ____ . ANY NEW PROBLEMS WITH YOUR MEDICATIONS? NO . WHEN DID YOU LAST EAT? ____ . WHEN DID YOU LAST DRINK? ____ . WHAT DID YOU LAST DRINK? ____ . NAME OF PERSON DRIVING YOU HOME? ____ . DO YOU HAVE ANY OTHER QUESTIONS OR CONCERNS NO . VITAL SIGNS WT 200 LBS, HT 72 IN, BMI 27.12 INDEX, BP 122/63 MM HG, HR 55 /MIN, RR 18 /MIN, TEMP 96.7 F, OXYGEN SAT % 95%, NA INITIALS SC 09:06. EXAMINATION GENERAL EXAMINATION: PATIENT IS ALERT O X 3 AND COOPERATIVE. MILD TENDERNESS IN THE LOW BACK AREA. PATIENT IS ABLE TO MOVE BETTER. 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 ASSESSMENTS LUMBAR SPONDYLOSIS - M47.816 (PRIMARY) TREATMENT LUMBAR SPONDYLOSIS REFILL TRAMADOL HCL ER TABLET EXTENDED RELEASE 24 HOUR, 300 MG, 1 TABLET, ORALLY FOR PAIN, ONCE A DAY CHRONIC PAIN MDD=1, 60 DAYS, 60, REFILLS 0 CLINICAL NOTES: WE DISCUSSED SEVERAL ISSUES WITH MR. ARAUJO'S PAIN MANAGEMENT CASE. THE PATIENT'S OVERALL IMPROVEMENT AND SATISFACTION HAS INCREASED SINCE THE LUMBAR FACET BLOCK. THE PATIENT WILL CONTINUE HIS TRAMADOL ER MEDICATION REGIMENT. ISTOP _# [id number] WAS REVIEWED. UTOX DONE ON 11/24/2018 AND TODAY'S PILL COUNT SHOWS CONCURRENT RESULTS. PATIENT WILL FOLLOWUP IN 3 MONTHS. INSTRUCTIONS WERE GIVEN, QUESTIONS WERE ANSWERED, PATIENT REPORTS UNDERSTANDING AND AGREES WITH THE PLAN. I, LAVERNE RICHEY, DOCUMENTED THE ABOVE INFORMATION ACTING A SCRIBE FOR DR. ORDONEZ. I HAVE REVIEWED THE ABOVE DOCUMENT, WRITTEN BY LAVERNE RICHEY SCRIBE AND I VERIFY THAT IT IS ACCURATE. . PROCEDURES PN WORKMANS' COMP OPINION IN YOUR OPINION, WAS THE INCIDENT THAT THE PATIENT DESCRIBED THE COMPETENT MEDICAL CAUSE OF THIS INJURY/ILLNESS? YES ARE THE PATIENT'S COMPLAINTS CONSISTENT WITH HIS/HER HISTORY OF THE INJURY/ILLNESS? YES IS THE PATIENT'S HISTORY OF THE INJURY/ILLNESS CONSISTENT WITH YOUR OBJECTIVE FINDING? YES WHAT IS THE PERCENTAGE OF TEMPORARY IMPAIRMENT? MODERATE TO MARKED = 66.7% IS THE PATIENT WORKING? NO DOCTOR ON SITE: ROBERT VIRGEN MD PROCEDURE CODES FA211 ESTABILISHED PATIENT [facility] FACILITY CHARGE G8427 CURRENT MEDS W/DOSAGES DOCUMENTED G8730 PAIN ASSESS POS TOOL F/U PLAN DOC DISPOSITION & COMMUNICATION FOLLOW UP 3 MONTHS ELECTRONICALLY SIGNED BY MANJULA CARREON ON 03/02/2019 AT 11:27 AM EDT DISCLAIMER : THIS IS A VISIT SUMMARY EXTRACTED FROM THE [employer] CHART. IT IS NOT A COPY OF THE [employer] PROGRESS NOTE. TOO
== END ==
LOC: M PAIN 08:30
PROVIDERS: ATTEND Anesthesiology
DX: M47.816 Spondylosis without myelopathy or radiculopathy, lumbar region (principal); G89.29 Other chronic pain; E78.00 Pure hypercholesterolemia, unspecified; Z95.5 Presence of coronary angioplasty implant and graft; Z86.59 Personal history of other mental and behavioral disorders; K21.9 Gastro-esophageal reflux disease without esophagitis; Z87.891 Personal history of nicotine dependence; Z79.82 Long term (current) use of aspirin; Z79.891 Long term (current) use of opiate analgesic; Z79.899 Other long term (current) drug therapy

== ENCOUNTER → 2019-08-02 | Outpatient (CLI) | payer SELFPAY | LOC: M PAIN 09:00 | PROVIDERS: ATTEND Nurse Practitioner Family | DX: M47.816 Spondylosis without myelopathy or radiculopathy, lumbar region (principal); M47.817 Spondylosis without myelopathy or radiculopathy, lumbosacral region; M54.5 Low back pain; Z79.82 Long term (current) use of aspirin; Z79.891 Long term (current) use of opiate analgesic; Z79.899 Other long term (current) drug therapy; Z87.891 Personal history of nicotine dependence ==

== ENCOUNTER → 2019-11-07 | Outpatient (CLI) | payer MEDICARE, SELFPAY ==
--- NOTE | 2019-11-22 08:16 | ECWPNPC ---
PATIENT NAME: CHRISSY ARAUJO : 1950 GENDER: MALE VISIT DATE: 11/07/2019 DISCHARGE DATE: 11/07/19 1020 VISIT LOCKED DATE TIME: PHYSICIAN: AUGUSTIN RAY RESOURCE: AUGUSTIN RAY REASON FOR APPOINTMENT 1. 3 MOS HISTORY OF PRESENT ILLNESS HISTORY OF PRESENT ILLNESS: 69 Y/O MALE HERE FOR F/U OF CHRONIC LBP.THIS BEGAN >10 YEARS AGO AFTER A FALL ON ICE.RATING PAIN VAS 2-3/10.CURRENTLY USING TRAMADOL 300MG ER DAILY AND GABAPENTIN 600MG 1 IN AM AND 1 TO 2 TAB AT HS DEPENDING ON PAIN LEVEL.USING ACETAMINOPHEN PRN.HX OF [place] 2 YEARS AGO W STENT PLACEMENT.HAS DONE WELL WITH LFBT IN PAST BUT DOESNT FEEL HE NEEDS THEM NOW. PAIN THE PATIENT DESCRIBES THE PAIN... FALL RISK SCREENING: SCREENING :NO FALLS REPORTED IN THE LAST YEAR CURRENT MEDICATIONS TAKING OMEPRAZOLE 40 MG CAPSULE DELAYED RELEASE ORAL ONCE DAILY TAKING LORATADINE 10 MG TABLET 1 TABLET ORALLY ONCE A DAY NEEDED, NOTES: NONE RECENTLY TAKING METOPROLOL TARTRATE 25 MG TABLET 0.5 TAB ORALLY DAILY TAKING ASPIRIN 81 MG TABLET CHEWABLE 1 TABLET ORALLY ONCE A DAY TAKING RAMIPRIL 2.5 MG CAPSULE 1 CAPSULE ORALLY BID TAKING NITROGLYCERIN 0.4 MG TABLET SUBLINGUAL SUBLINGUAL , NOTES: NONE RECENTLY TAKING FLUOXETINE HCL 20 MG TABLET 1 CAPSULE IN THE MORNING ORALLY ONCE A DAY TAKING TRAMADOL HCL ER 300 MG TABLET EXTENDED RELEASE 24 HOUR 1 TABLET ORALLY FOR PAIN ONCE A DAY CHRONIC PAIN MDD=1 TAKING GABAPENTIN 600 MG TABLET 1 CAPSULE ORALLY TAKE 1 CAP IN AM, ONE CAP AT 3 PM AND 2 CAPS AT BEDTIME NOT-TAKING ATORVASTATIN CALCIUM 40 MG TABLET 1 TABLET ORALLY ONCE A DAY NOT-TAKING VITAMIN B COMPLEX - CAPSULE 1 TAB ORALLY DAILY NOT-TAKING ISOSORBIDE MONONITRATE ER 60 MG TABLET EXTENDED RELEASE 24 HOUR 1 TABLET IN THE MORNING ORALLY ONCE A DAY NOT-TAKING CELECOXIB 200 MG CAPSULE 1 CAPSULE WITH FOOD ORALLY ONCE A DAY NOT-TAKING NORCO 5-325 MG TABLET 1 TABLET NEEDED ORALLY EVERY 12 HRS PRN SEVERE PAIN MDD=2 NOT-TAKING PREDNISONE 10 MG TABLET 1 TABLET ORALLY TAKE 5 TAB X2 DAYS, 4 TAB X 2 DAY, 3 TAB X 2 DAY, 2 TAB X 2 DAY, 1 TAB X 2 DAYS MEDICATION LIST REVIEWED AND RECONCILED WITH THE PATIENT PAST MEDICAL HISTORY PROSTATE HIGH CHOLESTEROL [place] HEART STENT LUMBAR SPONDYLOSIS DEPRESSION ACID REFLUX CHRONIC BACK PAIN ALLERGIES POLLEN SURGICAL HISTORY INGUINAL HERNIA REPAIR AND APPENDECTOMY 1971 CHOLECYSTECTOMY 12/20 COLONOSCOPY 05/2018 FAMILY HISTORY FATHER: 46 YRS, DIAGNOSED WITH UNSPECIFIED HEART DISEASE MOTHER: 52 YRS, COMPLICATIONS AFTER GALL BLADDER SURGERY SIBLINGS: ALIVE, THROAT CANCER, OTHER MALIGNANT NEOPLASM OF UNSPECIFIED SITE SOCIAL HISTORY GENERAL: TOBACCO USE ARE YOU A:FORMER SMOKER HOW LONG HAS IT BEEN SINCE YOU LAST SMOKED?5-10 YEARS DIET: REGULAR. LANGUAGE LANGUAGES SPOKEN:ARABIC NEW PATIENT PAIN DIARY TODAY'S VISITNOTES FROM 0-10, WHAT LEVEL IS YOUR PAIN TODAY?7 RECREATIONAL DRUG USE DRUG USE?NO EXERCISE: STRETCHES EVERY OTHER DAY, WALKS WHEN WEATHER ALLOWS. LEARNING BARRIERS / SPECIAL NEEDS CHANGE FROM LAST VISIT?NO BARRIERS TO LEARNING?NO HEARING IMPAIRED?YES VISION IMPAIRED?YES COGNITIVELY IMPAIRED?NO :HEARING AIDES :CORRECTIVE LENSES READINESS TO LEARN?YES LEARNING PREFERENCES?NO LEARNING CAPABILITIES PRESENT?YES EMOTIONAL BARRIERS?NO SPECIAL DEVICES?NO CHEMICAL TREATMENT PLANT TECHNICIAN NEEDED?NO PAIN CLINIC PFS, CLERGY, PUBLIC HEALTH REFERRALS PFS REFERRAL NEEDED?NO CLERGY REFERRAL NEEDED?NO PUBLIC HEALTH REFERRAL NEEDED?NO WAS THE PROVIDER NOTIFIED OF ANY PERTINENT INFO?YES HAS THE PATIENT BEEN EDUCATED REGARDING HIS/HER PLAN OF CARE?YES HAS THE PATIENT BEEN EDUCATED REGARDING PAIN, THE RISK FOR PAIN, THE IMPORTANCE OF EFFECTIVE PAIN MANAGEMENT, AND THE PAIN ASSESSMENT PROCESS?YES LATEX QUESTIONNAIRE LATEX ALLERGY : HAVE YOU EVER DEVELOPED ANY TYPE OF REACTION AFTER HANDLING LATEX PRODUCTS SUCH RUBBER GLOVES, CONDOMS, DIAPHRAGMS, BALLOONS, SOCKS, OR UNDERWEAR?NO LATEX ALLERGY : HAVE YOU EVER DEVELOPED ANY TYPE OF REACTION DURING OR AFTER DENTAL APPOINTMENT, VAGINAL/RECTAL EXAMINATION, SURGICAL PROCEDURE, OR ANY OTHER EXPOSURE?NO LATEX RISK : HAVE YOU EVER HAD ANY DIFFICULTY BREATHING OR HIVES AFTER EATING OR HANDLING ANY FRUITS, OR VEGETABLES; SUCH KIWI, BANANAS, STONE FRUITS, OR CHESTNUTSNO LATEX RISK : DO YOU HAVE A PREVIOUS PERSONAL HISTORY OF MORE THAN NINE SURGERIES, SPINA BIFIDA, OR REPEATED CATHERIZATIONS? NO LATEX RISK : ARE YOU FREQUENTLY EXPOSED TO LATEX PRODUCTS IN YOUR OCCUPATION?NO DATE ASKED : 11/07/2019 CAFFEINE CAFFEINE USE?YES HOW OFTEN AND HOW MUCH? 4 CUPS COFFEE PER DAY OR MORE ADVANCE DIRECTIVE ADVANCE DIRECTIVE DISCUSSED WITH PATIENT:YES DECLINES HCP INFORMATION AT THIS TIME, DECLINES ASSISTANCE WITH PAPERWORK ALEVISM [id number] BUDDHISM ALCOHOL SCREENING DID YOU HAVE A DRINK CONTAINING ALCOHOL IN THE PAST YEAR?NO POINTS0 INTERPRETATIONNEGATIVE OCCUPATION: RETIRED. REVIEWED WITH PT 04/08/18 0918 BVREVIEWED WITH PATIENT 11/24/18 1055 JSREVIEWED WITH PATIENT 05/16/19 0930 JSREVIEWED WITH PT 08/02/19 0904 NLJREVIEWED WITH PATIENT 20 DS. HOSPITALIZATION/MAJOR DIAGNOSTIC PROCEDURE SURGERIES HEART ATTACK REVIEW OF SYSTEMS REVIEWED BY: PROVIDER: AUGUSTIN JAY . CONSTITUTIONAL: ANY CHANGE IN YOUR MEDICAL CONDITION? NO . CHILLS NO . FEVER NO . INFECTION: DO YOU HAVE NEW INFECTIONS? NO . DO YOU HAVE HISTORY OF MRSA? NO . MUSCULOSKELETAL: ANY NEW PATTERNS OF PAIN OR NUMBNESS? YES, PT STATES THAT HE HAD A SUDDEN INCREASE IN PAIN, PAIN HAS SINCE RESOLVED, NO FALLS, NO EXPLANATION FOR INCREASE IN PAIN . GASTROENTEROLOGY: ANY NEW CHANGE IN BOWEL CONTROL? NO . GENITOURINARY: ANY NEW CHANGE IN BLADDER CONTROL? NO . IS THERE A CHANCE YOU COULD BE ? NO . HEMATOLOGY/LYMPH: DO YOU TAKE ANY BLOOD THINNERS? (FOR EXAMPLE- COUMADIN, PLAVIX, AGGRENOX, PLATEL, PRADAXA, OR XARELTO) NO . WHEN WAS YOUR LAST DOSE? DATE: TIME: . NEUROLOGY: HAVE YOU FALLEN IN THE PAST 12 MONTHS? NO . ANY NEW EXTREMITY NUMBNESS OR WEAKNESS? NO . CARDIOLOGY: DO YOU HAVE A PACEMAKER OR DEFIBRILLATOR? NO . RESPIRATORY: HAVE YOU BEEN SICK IN THE PAST WEEK? NO . FEVER NO . FLU LIKE SYMPTOMS? NO . COUGH NO . INTEGUMENTARY: DO YOU HAVE ANY RASHES OR OPEN SORES? NO . ALLERGIC/IMMUNO: ARE YOU ALLERGIC TO IV DYE? NO . ANY NEW ALLERGIES? NO . PSYCHIATRIC: DO YOU HAVE THOUGHTS OF HURTING YOURSELF OR SOMEONE ELSE? NO . ARE YOU ABUSED, NEGLECTED, OR IN AN UNSAFE ENVIRONMENT? NO . ENDOCRINOLOGY: ARE YOU DIABETIC? NO . OTHER: DO YOU NEED ANY PRESCRIPTIONS? TRAMADOL AND GABAPENTIN . IF YES, PLEASE LIST: ____ . ANY NEW PROBLEMS WITH YOUR MEDICATIONS? NO . WHEN DID YOU LAST EAT? ____ . WHEN DID YOU LAST DRINK? ____ . WHAT DID YOU LAST DRINK? ____ . NAME OF PERSON DRIVING YOU HOME? ____ . DO YOU HAVE ANY OTHER QUESTIONS OR CONCERNS NO . VITAL SIGNS WT 208.9 LBS, HT 72 IN, BMI 28.33 INDEX, BP 131/77 MM HG, HR 63 /MIN, RR 18 /MIN, TEMP 96.7 F, OXYGEN SAT % 90%, SAFE IN ENV? (Y/N) Y, NA INITIALS AW 0951, REVIEWED BY: АЛЕКСАНДР WITH PATIENT DS 11/07/19. EXAMINATION GENERAL EXAMINATION: GENERAL AWAKE,ALERT ,PLEASANT . PSYCH AFFECT NORMAL . LUNGS: LUNG GALINDO ARE CLEAR TO AUSCULTATION BILATERALLY. GOOD MOVEMENT OF AIR . HEART: S1, S2 IN A REGULAR RATE AND RHYTHM. NO SIGNIFICANT MURMURS, RUBS OR GALLOPS NOTED . 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 URINE TOX TODAY. PREVENTIVE MEDICINE PAIN CLINIC TEACHING: THE PATIENT HAS BEEN EDUCATED REGARDING PAIN, THE RISK FOR PAIN, THE IMPORTANCE OF EFFECTIVE PAIN MANAGEMENT, AND THE PAIN ASSESSMENT PROCESS. : REVIEWED AND DISCUSSED TREATMENT PLAN WITH PT, PT ACKNOWLEDGED UNDERSTANDING. DS PROCEDURE CODES FA211 ESTABILISHED PATIENT [facility] FACILITY CHARGE DISPOSITION & COMMUNICATION FOLLOW UP 3 MONTHS (REASON: MED MGMNT) ELECTRONICALLY SIGNED BY MISTY ADAMS ON 11/21/2019 AT 02:17 PM EST DISCLAIMER : THIS IS A VISIT SUMMARY EXTRACTED FROM THE [employer] CHART. IT IS NOT A COPY OF THE [employer] PROGRESS NOTE. TOO
== END ==
LOC: M PAIN 09:30
PROVIDERS: ATTEND Nurse Practitioner Family
DX: M47.816 Spondylosis without myelopathy or radiculopathy, lumbar region (principal)

== ENCOUNTER → 2020-02-06 | Outpatient (CLI) | payer MEDICARE, SELFPAY ==
--- NOTE | 2020-02-07 03:53 | ECWPNPC ---
PATIENT NAME: CHRISSY ARAUJO : 1950 GENDER: MALE VISIT DATE: 02/06/2020 DISCHARGE DATE: 02/06/20 0954 VISIT LOCKED DATE TIME: PHYSICIAN: AUGUSTIN RAY RESOURCE: AUGUSTIN RAY REASON FOR APPOINTMENT 1. 3 MONTHS HISTORY OF PRESENT ILLNESS HISTORY OF PRESENT ILLNESS: 69 Y/O MALE HERE FOR F/U OF CHRONIC LBP.THIS BEGAN >10 YEARS AGO AFTER A FALL ON ICE.RATING PAIN VAS 2-3/10.CURRENTLY USING TRAMADOL 300MG ER DAILY AND GABAPENTIN 600MG 1 IN AM AND 1 TO 2 TAB AT HS DEPENDING ON PAIN LEVEL.USING ACETAMINOPHEN PRN.HX OF [place] 2 YEARS AGO W STENT PLACEMENT.HAS DONE WELL WITH LFBT IN PAST BUT DOESNT FEEL HE NEEDS THEM NOW. PAIN THE PATIENT DESCRIBES THE PAIN... FALL RISK SCREENING: SCREENING :NO FALLS REPORTED IN THE LAST YEAR CURRENT MEDICATIONS TAKING OMEPRAZOLE 40 MG CAPSULE DELAYED RELEASE ORAL ONCE DAILY TAKING LORATADINE 10 MG TABLET 1 TABLET ORALLY ONCE A DAY NEEDED TAKING METOPROLOL TARTRATE 25 MG TABLET 0.5 TAB ORALLY DAILY TAKING ASPIRIN 81 MG TABLET CHEWABLE 1 TABLET ORALLY ONCE A DAY TAKING RAMIPRIL 2.5 MG CAPSULE 1 CAPSULE ORALLY BID TAKING NITROGLYCERIN 0.4 MG TABLET SUBLINGUAL SUBLINGUAL , NOTES: NONE RECENTLY TAKING FLUOXETINE HCL 20 MG TABLET 1 CAPSULE IN THE MORNING ORALLY ONCE A DAY TAKING GABAPENTIN 600 MG TABLET 1 CAPSULE ORALLY TAKE 1 CAP IN AM, ONE CAP AT 3 PM AND 2 CAPS AT BEDTIME TAKING TRAMADOL HCL ER 300 MG TABLET EXTENDED RELEASE 24 HOUR 1 TABLET ORALLY FOR PAIN ONCE A DAY CHRONIC PAIN MDD=1 NOT-TAKING ATORVASTATIN CALCIUM 40 MG TABLET 1 TABLET ORALLY ONCE A DAY NOT-TAKING VITAMIN B COMPLEX - CAPSULE 1 TAB ORALLY DAILY NOT-TAKING ISOSORBIDE MONONITRATE ER 60 MG TABLET EXTENDED RELEASE 24 HOUR 1 TABLET IN THE MORNING ORALLY ONCE A DAY NOT-TAKING CELECOXIB 200 MG CAPSULE 1 CAPSULE WITH FOOD ORALLY ONCE A DAY NOT-TAKING NORCO 5-325 MG TABLET 1 TABLET NEEDED ORALLY EVERY 12 HRS PRN SEVERE PAIN MDD=2 NOT-TAKING PREDNISONE 10 MG TABLET 1 TABLET ORALLY TAKE 5 TAB X2 DAYS, 4 TAB X 2 DAY, 3 TAB X 2 DAY, 2 TAB X 2 DAY, 1 TAB X 2 DAYS MEDICATION LIST REVIEWED AND RECONCILED WITH THE PATIENT PAST MEDICAL HISTORY PROSTATE HIGH CHOLESTEROL [place] HEART STENT LUMBAR SPONDYLOSIS DEPRESSION ACID REFLUX CHRONIC BACK PAIN ALLERGIES POLLEN SURGICAL HISTORY INGUINAL HERNIA REPAIR AND APPENDECTOMY 1971 CHOLECYSTECTOMY 12/20 COLONOSCOPY 05/2018 FAMILY HISTORY FATHER: 46 YRS, DIAGNOSED WITH UNSPECIFIED HEART DISEASE MOTHER: 52 YRS, COMPLICATIONS AFTER GALL BLADDER SURGERY SIBLINGS: ALIVE, THROAT CANCER, OTHER MALIGNANT NEOPLASM OF UNSPECIFIED SITE SOCIAL HISTORY GENERAL: TOBACCO USE ARE YOU A:FORMER SMOKER HOW LONG HAS IT BEEN SINCE YOU LAST SMOKED?5-10 YEARS DIET: REGULAR. LANGUAGE LANGUAGES SPOKEN:DIVEHI NEW PATIENT PAIN DIARY TODAY'S VISITNOTES 02/06/2020 PATIENT DESCRIBES PAIN :ACHING, HAVE IT ALL THE TIME FROM 0-10, WHAT LEVEL IS YOUR PAIN TODAY?2 RECREATIONAL DRUG USE DRUG USE?NO EXERCISE: STRETCHES EVERY OTHER DAY, WALKS WHEN WEATHER ALLOWS. LEARNING BARRIERS / SPECIAL NEEDS CHANGE FROM LAST VISIT?NO BARRIERS TO LEARNING?NO HEARING IMPAIRED?YES VISION IMPAIRED?YES COGNITIVELY IMPAIRED?NO :HEARING AIDES :CORRECTIVE LENSES READINESS TO LEARN?YES LEARNING PREFERENCES?NO LEARNING CAPABILITIES PRESENT?YES EMOTIONAL BARRIERS?NO SPECIAL DEVICES?NO LODGE SALES ASSOCIATE NEEDED?NO PAIN CLINIC PFS, CLERGY, PUBLIC HEALTH REFERRALS PFS REFERRAL NEEDED?NO CLERGY REFERRAL NEEDED?NO PUBLIC HEALTH REFERRAL NEEDED?NO WAS THE PROVIDER NOTIFIED OF ANY PERTINENT INFO?YES HAS THE PATIENT BEEN EDUCATED REGARDING HIS/HER PLAN OF CARE?YES HAS THE PATIENT BEEN EDUCATED REGARDING PAIN, THE RISK FOR PAIN, THE IMPORTANCE OF EFFECTIVE PAIN MANAGEMENT, AND THE PAIN ASSESSMENT PROCESS?YES LATEX QUESTIONNAIRE LATEX ALLERGY : HAVE YOU EVER DEVELOPED ANY TYPE OF REACTION AFTER HANDLING LATEX PRODUCTS SUCH RUBBER GLOVES, CONDOMS, DIAPHRAGMS, BALLOONS, SOCKS, OR UNDERWEAR?NO LATEX ALLERGY : HAVE YOU EVER DEVELOPED ANY TYPE OF REACTION DURING OR AFTER DENTAL APPOINTMENT, VAGINAL/RECTAL EXAMINATION, SURGICAL PROCEDURE, OR ANY OTHER EXPOSURE?NO LATEX RISK : HAVE YOU EVER HAD ANY DIFFICULTY BREATHING OR HIVES AFTER EATING OR HANDLING ANY FRUITS, OR VEGETABLES; SUCH KIWI, BANANAS, STONE FRUITS, OR CHESTNUTSNO LATEX RISK : DO YOU HAVE A PREVIOUS PERSONAL HISTORY OF MORE THAN NINE SURGERIES, SPINA BIFIDA, OR REPEATED CATHERIZATIONS? NO LATEX RISK : ARE YOU FREQUENTLY EXPOSED TO LATEX PRODUCTS IN YOUR OCCUPATION?NO DATE ASKED : 11/07/2019 CAFFEINE CAFFEINE USE?YES HOW OFTEN AND HOW MUCH? 4 CUPS COFFEE PER DAY OR MORE ADVANCE DIRECTIVE ADVANCE DIRECTIVE DISCUSSED WITH PATIENT:YES HCP - LETA ARAUJO () SPIRITISM [id number] QUAKER ALCOHOL SCREENING DID YOU HAVE A DRINK CONTAINING ALCOHOL IN THE PAST YEAR?NO POINTS0 INTERPRETATIONNEGATIVE OCCUPATION: RETIRED. HOSPITALIZATION/MAJOR DIAGNOSTIC PROCEDURE SURGERIES HEART ATTACK REVIEW OF SYSTEMS REVIEWED BY: PROVIDER: AUGUSTIN JAY . CONSTITUTIONAL: ANY CHANGE IN YOUR MEDICAL CONDITION? NO . CHILLS NO . FEVER NO . INFECTION: DO YOU HAVE NEW INFECTIONS? NO . DO YOU HAVE HISTORY OF MRSA? NO . MUSCULOSKELETAL: ANY NEW PATTERNS OF PAIN OR NUMBNESS? NO . GASTROENTEROLOGY: ANY NEW CHANGE IN BOWEL CONTROL? NO . GENITOURINARY: ANY NEW CHANGE IN BLADDER CONTROL? NO . IS THERE A CHANCE YOU COULD BE ? NO . HEMATOLOGY/LYMPH: DO YOU TAKE ANY BLOOD THINNERS? (FOR EXAMPLE- COUMADIN, PLAVIX, AGGRENOX, PLATEL, PRADAXA, OR XARELTO) NO . WHEN WAS YOUR LAST DOSE? DATE: TIME: . NEUROLOGY: HAVE YOU FALLEN IN THE PAST 12 MONTHS? NO . ANY NEW EXTREMITY NUMBNESS OR WEAKNESS? NO . CARDIOLOGY: DO YOU HAVE A PACEMAKER OR DEFIBRILLATOR? NO . RESPIRATORY: HAVE YOU BEEN SICK IN THE PAST WEEK? NO . FEVER NO . FLU LIKE SYMPTOMS? NO . COUGH NO . INTEGUMENTARY: DO YOU HAVE ANY RASHES OR OPEN SORES? NO . ALLERGIC/IMMUNO: ARE YOU ALLERGIC TO IV DYE? NO . ANY NEW ALLERGIES? NO . PSYCHIATRIC: DO YOU HAVE THOUGHTS OF HURTING YOURSELF OR SOMEONE ELSE? NO . ARE YOU ABUSED, NEGLECTED, OR IN AN UNSAFE ENVIRONMENT? NO . ENDOCRINOLOGY: ARE YOU DIABETIC? NO . OTHER: DO YOU NEED ANY PRESCRIPTIONS? YES . IF YES, PLEASE LIST: ____TRAMADOL, GABAPENTIN . ANY NEW PROBLEMS WITH YOUR MEDICATIONS? NO . WHEN DID YOU LAST EAT? ____ . WHEN DID YOU LAST DRINK? ____ . WHAT DID YOU LAST DRINK? ____ . NAME OF PERSON DRIVING YOU HOME? ____ . DO YOU HAVE ANY OTHER QUESTIONS OR CONCERNS NO . VITAL SIGNS WT 202.3 LBS, HT 72 IN, BMI 27.43 INDEX, BP 125/78 MM HG, HR 70 /MIN, RR 18 /MIN, TEMP 97.7 F, OXYGEN SAT % 96%, SAFE IN ENV? (Y/N) YES, NA INITIALS AW 0903, REVIEWED BY: MILLA. EXAMINATION GENERAL EXAMINATION: GENERALNO ACUTE DISTRESS, WELL NOURISHED AND HYDRATED. PSYCHAPPROPRIATE MOOD AND AFFECT . FACE:UNREMARKABLE. 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 , RISKS OF NARCOTIC/OPIOD MEDICATIONS INCLUDES BUT IS NOT LIMITED TO RISK OF DEPENDANCE/DEVELOPMENT OF ADDICTION, MOOD DISTURBANCE AND DEPRESSION, OSTEOPOROSIS, HORMONAL AND LABIDAL CHANGES, RESPIRATORY DEPRESSION AND . PATIENT IS ADVISED NOT TO DRIVE OR DRINK ALCOHOL WHILE ON THESE MEDICATIONS. PROCEDURE CODES FA211 ESTABILISHED PATIENT [facility] FACILITY CHARGE DISPOSITION & COMMUNICATION FOLLOW UP 3 MONTHS (REASON: LBP) ELECTRONICALLY SIGNED BY MISTY ADAMS ON 02/06/2020 AT 09:57 AM EDT DISCLAIMER : THIS IS A VISIT SUMMARY EXTRACTED FROM THE [employer] CHART. IT IS NOT A COPY OF THE [employer] PROGRESS NOTE. TOO
== END ==
LOC: M PAIN 09:00
PROVIDERS: ATTEND Nurse Practitioner Family
DX: M47.816 Spondylosis without myelopathy or radiculopathy, lumbar region (principal); Z79.82 Long term (current) use of aspirin; Z79.891 Long term (current) use of opiate analgesic; Z79.899 Other long term (current) drug therapy; Z87.891 Personal history of nicotine dependence

== ENCOUNTER → 2020-05-14 | Outpatient (CLI) | payer SELFPAY ==
--- NOTE | 2020-05-18 06:43 | ECWPNPC ---
PATIENT NAME: CHRISSY ARAJUO : 1950 GENDER: MALE VISIT DATE: 05/14/2020 DISCHARGE DATE: 05/14/20920 VISIT LOCKED DATE TIME: PHYSICIAN: AUGUSTIN RAY RESOURCE: AUGUSTIN RAY REASON FOR APPOINTMENT 1. 3 MONTHS HISTORY OF PRESENT ILLNESS PAIN CENTER INTAKE QUESTIONS: DO YOU HAVE A HISTORY OF MRSA? :NO DO YOU TAKE A BLOOD THINNERS? :NO DO YOU HAVE ANY BLEEDING DISORDERS? :NO ANY NEW NUMBNESS OR WEAKNESS IN YOUR LEGS OR ARMS? :NO ANY PACEMAKER,DEFIBRILLATOR, OR DORSAL COLUMN STIMULATOR? :NO DO YOU HAVE ANY RASHES OR OPEN SORES? :NO ARE YOU ALLERGIC TO IV DYE? :NO ARE YOU DIABETIC? :NO ANY NEW PROBLEMS WITH YOUR MEDICATIONS? :NO HAVE YOU RECEIVED A VACCINE IN THE PAST 30 DAYS? :NO DO YOU PLAN TO RECEIVE A VACCINE IN THE NEXT 21 DAYS? :NO DO YOU NEED ANY PRESCRIPTION? :NO DO YOU TAKE ANY IMMUNOSUPPRESSIVE MEDICATIONS? :NO IS THERE A CHANCE YOU COULD BE ? :NO ARE YOU BREAST FEEDING? :NO GENERAL: HERE FOR 3 MONTH FOLLOW-UP OF CHRONIC LOW BACK PAIN. DOING WELL WITH TRAMADOL EXTENDED RELEASE 300 MG DAILY. USING GABAPENTIN 300 MG 3-4 TIMES DAILY. HAD FLAREUP LAST WEEK OF LOW BACK PAIN BUT THAT HAS RESOLVED. HAS RESPONDED WELL TO THERAPEUTIC LUMBAR BLOCKS IN THE PAST BUT DOESN'T FEEL HIS PAIN IS EXTREME ENOUGH TO CONSIDER THAT NOW. -. FALL RISK SCREENING: SCREENING :NO FALLS REPORTED IN THE LAST YEAR PAIN SCREENING: PATIENT HAS A COMPLAINT OF ACUTE OR CHRONIC PAIN :YES DURATION:CONSTANT PAIN IS INCREASED BY:OTHERS PT CANNOT STATE WHAT INCREASES HIS PAIN . CURRENTLY IS DOING WELL LAST WEEK IT UP "LIKE AN 8" PAIN IS DECREASED BY:SITTING, OTHERS TREATMENT/MEDICATIONS USED TO MANAGE PAIN: TRAMADOL HELPS NURSING NOTE: -. CURRENT MEDICATIONS TAKING OMEPRAZOLE 40 MG CAPSULE DELAYED RELEASE ORAL ONCE DAILY TAKING LORATADINE 10 MG TABLET 1 TABLET ORALLY ONCE A DAY NEEDED TAKING METOPROLOL TARTRATE 25 MG TABLET 0.5 TAB ORALLY DAILY TAKING ASPIRIN 81 MG TABLET CHEWABLE 1 TABLET ORALLY ONCE A DAY TAKING RAMIPRIL 2.5 MG CAPSULE 1 CAPSULE ORALLY BID TAKING NITROGLYCERIN 0.4 MG TABLET SUBLINGUAL SUBLINGUAL , NOTES: NONE RECENTLY TAKING FLUOXETINE HCL 20 MG TABLET 1 CAPSULE IN THE MORNING ORALLY ONCE A DAY TAKING GABAPENTIN 600 MG TABLET 1 CAPSULE ORALLY TAKE 1 CAP IN AM, ONE CAP AT 3 PM AND 2 CAPS AT BEDTIME TAKING TRAMADOL HCL ER 300 MG TABLET EXTENDED RELEASE 24 HOUR 1 TABLET ORALLY FOR PAIN ONCE A DAY CHRONIC PAIN MDD=1 NOT-TAKING ATORVASTATIN CALCIUM 40 MG TABLET 1 TABLET ORALLY ONCE A DAY NOT-TAKING VITAMIN B COMPLEX - CAPSULE 1 TAB ORALLY DAILY NOT-TAKING ISOSORBIDE MONONITRATE ER 60 MG TABLET EXTENDED RELEASE 24 HOUR 1 TABLET IN THE MORNING ORALLY ONCE A DAY NOT-TAKING CELECOXIB 200 MG CAPSULE 1 CAPSULE WITH FOOD ORALLY ONCE A DAY NOT-TAKING NORCO 5-325 MG TABLET 1 TABLET NEEDED ORALLY EVERY 12 HRS PRN SEVERE PAIN MDD=2 NOT-TAKING PREDNISONE 10 MG TABLET 1 TABLET ORALLY TAKE 5 TAB X2 DAYS, 4 TAB X 2 DAY, 3 TAB X 2 DAY, 2 TAB X 2 DAY, 1 TAB X 2 DAYS MEDICATION LIST REVIEWED AND RECONCILED WITH THE PATIENT PAST MEDICAL HISTORY PROSTATE HIGH CHOLESTEROL HI HEART STENT LUMBAR SPONDYLOSIS DEPRESSION ACID REFLUX CHRONIC BACK PAIN ALLERGIES POLLEN SURGICAL HISTORY INGUINAL HERNIA REPAIR AND APPENDECTOMY 1971 CHOLECYSTECTOMY 12/20 COLONOSCOPY 05/2018 FAMILY HISTORY FATHER: 46 YRS, DIAGNOSED WITH UNSPECIFIED HEART DISEASE MOTHER: 52 YRS, COMPLICATIONS AFTER GALL BLADDER SURGERY SIBLINGS: ALIVE, THROAT CANCER, OTHER MALIGNANT NEOPLASM OF UNSPECIFIED SITE SOCIAL HISTORY GENERAL: TOBACCO USE ARE YOU A:FORMER SMOKER HOW LONG HAS IT BEEN SINCE YOU LAST SMOKED?5-10 YEARS LATEX QUESTIONNAIRE LATEX ALLERGY : HAVE YOU EVER DEVELOPED ANY TYPE OF REACTION AFTER HANDLING LATEX PRODUCTS SUCH RUBBER GLOVES, CONDOMS, DIAPHRAGMS, BALLOONS, SOCKS, OR UNDERWEAR?NO LATEX ALLERGY : HAVE YOU EVER DEVELOPED ANY TYPE OF REACTION DURING OR AFTER DENTAL APPOINTMENT, VAGINAL/RECTAL EXAMINATION, SURGICAL PROCEDURE, OR ANY OTHER EXPOSURE?NO DATE ASKED : 11/07/2019 LATEX RISK : HAVE YOU EVER HAD ANY DIFFICULTY BREATHING OR HIVES AFTER EATING OR HANDLING ANY FRUITS, OR VEGETABLES; SUCH KIWI, BANANAS, STONE FRUITS, OR CHESTNUTSNO LATEX RISK : DO YOU HAVE A PREVIOUS PERSONAL HISTORY OF MORE THAN NINE SURGERIES, SPINA BIFIDA, OR REPEATED CATHERIZATIONS? NO LATEX RISK : ARE YOU FREQUENTLY EXPOSED TO LATEX PRODUCTS IN YOUR OCCUPATION?NO ALCOHOL SCREENING DID YOU HAVE A DRINK CONTAINING ALCOHOL IN THE PAST YEAR?NO POINTS0 INTERPRETATIONNEGATIVE RECREATIONAL DRUG USE DRUG USE?NO CAFFEINE CAFFEINE USE?YES HOW OFTEN AND HOW MUCH? 4 CUPS COFFEE PER DAY OR MORE RESTORATION [id number] LATTER-DAY LANGUAGE LANGUAGES SPOKEN:MALDIVIAN LEARNING BARRIERS / SPECIAL NEEDS CHANGE FROM LAST VISIT?NO BARRIERS TO LEARNING?NO HEARING IMPAIRED?YES VISION IMPAIRED?YES COGNITIVELY IMPAIRED?NO :HEARING AIDES :CORRECTIVE LENSES READINESS TO LEARN?YES LEARNING PREFERENCES?NO LEARNING CAPABILITIES PRESENT?YES EMOTIONAL BARRIERS?NO SPECIAL DEVICES?NO MARGIN CLERK NEEDED?NO OCCUPATION: RETIRED. DIET: REGULAR. EXERCISE: STRETCHES EVERY OTHER DAY, WALKS WHEN WEATHER ALLOWS. NEW PATIENT PAIN DIARY TODAY'S VISITNOTES 02/06/2020 PATIENT DESCRIBES PAIN :ACHING, HAVE IT ALL THE TIME FROM 0-10, WHAT LEVEL IS YOUR PAIN TODAY?2 PAIN CLINIC PFS, CLERGY, PUBLIC HEALTH REFERRALS PFS REFERRAL NEEDED?NO CLERGY REFERRAL NEEDED?NO PUBLIC HEALTH REFERRAL NEEDED?NO WAS THE PROVIDER NOTIFIED OF ANY PERTINENT INFO?YES HAS THE PATIENT BEEN EDUCATED REGARDING HIS/HER PLAN OF CARE?YES HAS THE PATIENT BEEN EDUCATED REGARDING PAIN, THE RISK FOR PAIN, THE IMPORTANCE OF EFFECTIVE PAIN MANAGEMENT, AND THE PAIN ASSESSMENT PROCESS?YES ADVANCE DIRECTIVE ADVANCE DIRECTIVE DISCUSSED WITH PATIENT:YES HCP - LETA ARAUJO () HOSPITALIZATION/MAJOR DIAGNOSTIC PROCEDURE SURGERIES HEART ATTACK Z6 REVIEW OF SYSTEMS CONSTITUTIONAL: ANY RECENT FEVER NO . CHILLS NO . WEIGHT CHANGE OF UNKNOWN REASONS NO . GASTROENTEROLOGY: NEW UNEXPLAINABLE CHANGES IN BOWEL CONTROL NO . CONSTIPATION NO . GENITOURINARY: ANY NEW CHANGE IN BLADDER CONTROL? NO . NEUROLOGY: NEW ONSET DIZZINESS OR NEUROLOGICAL CHANGES NOT MENTIONED NO . NEW NUMBNESS OR PAIN PATTERNS NOT MENTIONED AND PERTINENT TO TODAY'S VISIT NO . CARDIOLOGY: NEW CHEST PRESSURE NO . NEW CHEST PAIN NO . RESPIRATORY: UNEXPLAINABLE COUGH NO . NEW SHORTNESS OF BREATH NO . VITAL SIGNS WT 202.2 LBS, HT 72 IN, BMI 27.42 INDEX, BP 131/73 MM HG, HR 54 /MIN, RR 18 /MIN, TEMP 97.5 F, OXYGEN SAT % 97%, NA INITIALS AW 0845. EXAMINATION GENERAL EXAMINATION: GENERAL AWAKE,ALERT ,PLEASANT . PSYCH AFFECT NORMAL . LUNGS: LUNG GALINDO ARE CLEAR TO AUSCULTATION BILATERALLY. GOOD MOVEMENT OF AIR . HEART: S1, S2 IN A REGULAR RATE AND RHYTHM. NO SIGNIFICANT MURMURS, RUBS OR GALLOPS NOTED . ASSESSMENTS LUMBAR SPONDYLOSIS - M47.816 (PRIMARY) TREATMENT LUMBAR SPONDYLOSIS NOTES: ADVISED TO CONTINUE TRAMADOL EXTENDED RELEASE 300 MG DAILY AND GABAPENTIN 300 MG UP TO 4 TABS PER DAY. TODAY I'VE ADDED TRAMADOL 50 MG 1 EVERY 4-6 HOURS WHEN NECESSARY FOR SEVERE PAIN EPISODES. #30 FOR 30 DAYS. HE WILL USES FOR ACUTE FLAREUPS ONLY. CONTINUE HOME EXERCISE AND STRETCHING. URINE FOR TOXICOLOGY TODAY. , ISTOP REGISTRY REVIEWED AND DEMONSTRATES COMPLLIANCE. BRINGS IN MEDICATIONS WHICH IS APPROPRIATE FOR WHAT WAS DISPENSED. RECENT URINE TOXICOLOGY REVIEWED. NO UNAUTHORIZED MEDICATIONS. NO ILLICIT SUBSTANCES AND PRESCRIBED MEDICATIONS WERE PRESENT. , RISKS OF NARCOTIC/OPIOD MEDICATIONS INCLUDES BUT IS NOT LIMITED TO RISK OF DEPENDANCE/DEVELOPMENT OF ADDICTION, MOOD DISTURBANCE AND DEPRESSION, OSTEOPOROSIS, HORMONAL AND LABIDAL CHANGES, RESPIRATORY DEPRESSION AND . PATIENT IS ADVISED NOT TO DRIVE OR DRINK ALCOHOL WHILE ON THESE MEDICATIONS. PREVENTIVE MEDICINE PAIN CLINIC TEACHING: MEDICATIONS TRAMDOL IMMEDIATE RELEAWITH THE PT ANSWERING QUESTIONSSE PRESCRIBED MEDICATION PRINT OUT GIVEN TO PT AND DISUCSSED THE MEDICATION . PROCEDURE CODES FA211 ESTABILISHED PATIENT [facility] CHARGE DISPOSITION & COMMUNICATION FOLLOW UP 3 MONTHS (REASON: MED MANAGEMENT/LOW BACK PAIN) ELECTRONICALLY SIGNED BY MISTY ADAMS ON 05/17/2020 AT 10:49 AM EDT DISCLAIMER : THIS IS A VISIT SUMMARY EXTRACTED FROM THE [employer] CHART. IT IS NOT A COPY OF THE [employer] PROGRESS NOTE. TOO
== END ==
LOC: M PAIN 08:45
PROVIDERS: ATTEND Nurse Practitioner Family
DX: M47.816 Spondylosis without myelopathy or radiculopathy, lumbar region (principal)

== ENCOUNTER → 2020-08-14 | Outpatient (CLI) | payer SELFPAY ==
--- NOTE | 2020-08-23 22:09 | ECWPNPC ---
PATIENT NAME: CHRISSY ARAUJO : 1950 GENDER: MALE VISIT DATE: 08/14/2020 DISCHARGE DATE: 08/14/20941 VISIT LOCKED DATE TIME: PHYSICIAN: AUGUSTIN RAY RESOURCE: AUGUSTIN RAY REASON FOR APPOINTMENT 1. MED MANAGEMENT/LOW BACK HISTORY OF PRESENT ILLNESS DEPRESSION SCREENING: PHQ-2 (2015 EDITION) LITTLE INTEREST OR PLEASURE IN DOING THINGS?NOT AT ALL FEELING DOWN, DEPRESSED, OR HOPELESS?NOT AT ALL TOTAL SCORE0 GENERAL: HERE FOR FOLLOW-UP/MEDICATION MANAGEMENT FOR CHRONIC LOW BACK PAIN. OVERALL DOING WELL WITH TRAMADOL AND GABAPENTIN. DENIES ADVERSE SIDE EFFECTS. RATING PAIN LEVEL A 3/10 VAS. -. FALL RISK SCREENING: SCREENING :NO FALLS REPORTED IN THE LAST YEAR PAIN SCREENING: PATIENT HAS A COMPLAINT OF ACUTE OR CHRONIC PAIN :YES LOCATION OF PAIN:LOW BACK INTENSITY OF PAIN (SCALE OF 1 TO 10):2 WHAT DOES YOUR PAIN FEEL LIKE:ACHING DURATION:STEADY PAIN IS INCREASED BY:ACTIVITIES, PROLONGED STANDING PAIN IS DECREASED BY:USE OF PAIN MEDICATIONS, SITTING NURSING NOTE: -. PAIN CENTER INTAKE QUESTIONS: DO YOU HAVE A HISTORY OF MRSA? :NO DO YOU TAKE A BLOOD THINNERS? :YES BABY ASPIRIN DO YOU HAVE ANY BLEEDING DISORDERS? :NO ANY NEW NUMBNESS OR WEAKNESS IN YOUR LEGS OR ARMS? :NO ANY PACEMAKER,DEFIBRILLATOR, OR DORSAL COLUMN STIMULATOR? :YES DORSAL COLUMN DO YOU HAVE ANY RASHES OR OPEN SORES? :NO ARE YOU ALLERGIC TO IV DYE? :NO ARE YOU DIABETIC? :NO ANY NEW PROBLEMS WITH YOUR MEDICATIONS? :NO HAVE YOU RECEIVED A VACCINE IN THE PAST 30 DAYS? :NO DO YOU PLAN TO RECEIVE A VACCINE IN THE NEXT 21 DAYS? :YES IF SO WHAT VACCINE AND WHEN? FLU VAC DO YOU NEED ANY PRESCRIPTION? :YES TRAMADOL 300MG DO YOU TAKE ANY IMMUNOSUPPRESSIVE MEDICATIONS? :NO IS THERE A CHANCE YOU COULD BE ? :NO ARE YOU BREAST FEEDING? :NO CURRENT MEDICATIONS TAKING OMEPRAZOLE 40 MG CAPSULE DELAYED RELEASE ORAL ONCE DAILY TAKING LORATADINE 10 MG TABLET 1 TABLET ORALLY ONCE A DAY NEEDED TAKING METOPROLOL TARTRATE 25 MG TABLET 0.5 TAB ORALLY DAILY TAKING ASPIRIN 81 MG TABLET CHEWABLE 1 TABLET ORALLY ONCE A DAY TAKING RAMIPRIL 2.5 MG CAPSULE 1 CAPSULE ORALLY BID TAKING NITROGLYCERIN 0.4 MG TABLET SUBLINGUAL SUBLINGUAL , NOTES: NONE RECENTLY TAKING FLUOXETINE HCL 20 MG TABLET 1 CAPSULE IN THE MORNING ORALLY ONCE A DAY TAKING GABAPENTIN 600 MG TABLET 1 CAPSULE ORALLY TAKE 1 CAP IN AM, ONE CAP AT 3 PM AND 2 CAPS AT BEDTIME TAKING TRAMADOL HCL ER 300 MG TABLET EXTENDED RELEASE 24 HOUR 1 TABLET ORALLY FOR PAIN ONCE A DAY CHRONIC PAIN MDD=1 TAKING TRAMADOL HCL 50 MG TABLET 1 TABLET NEEDED ORALLY Q6-8HR PRN MDD3 #30 TAB SHOULD LAST 30 DAYS NOT-TAKING ATORVASTATIN CALCIUM 40 MG TABLET 1 TABLET ORALLY ONCE A DAY NOT-TAKING VITAMIN B COMPLEX - CAPSULE 1 TAB ORALLY DAILY NOT-TAKING ISOSORBIDE MONONITRATE ER 60 MG TABLET EXTENDED RELEASE 24 HOUR 1 TABLET IN THE MORNING ORALLY ONCE A DAY NOT-TAKING CELECOXIB 200 MG CAPSULE 1 CAPSULE WITH FOOD ORALLY ONCE A DAY NOT-TAKING NORCO 5-325 MG TABLET 1 TABLET NEEDED ORALLY EVERY 12 HRS PRN SEVERE PAIN MDD=2 NOT-TAKING PREDNISONE 10 MG TABLET 1 TABLET ORALLY TAKE 5 TAB X2 DAYS, 4 TAB X 2 DAY, 3 TAB X 2 DAY, 2 TAB X 2 DAY, 1 TAB X 2 DAYS MEDICATION LIST REVIEWED AND RECONCILED WITH THE PATIENT PAST MEDICAL HISTORY PROSTATE HIGH CHOLESTEROL [place] HEART STENT LUMBAR SPONDYLOSIS DEPRESSION ACID REFLUX CHRONIC BACK PAIN ALLERGIES POLLEN SURGICAL HISTORY INGUINAL HERNIA REPAIR AND APPENDECTOMY 1970 CHOLECYSTECTOMY 12/20 COLONOSCOPY 05/2018 FAMILY HISTORY FATHER: 46 YRS, DIAGNOSED WITH UNSPECIFIED HEART DISEASE MOTHER: 52 YRS, COMPLICATIONS AFTER GALL BLADDER SURGERY SIBLINGS: ALIVE, THROAT CANCER, OTHER MALIGNANT NEOPLASM OF UNSPECIFIED SITE SOCIAL HISTORY GENERAL: TOBACCO USE ARE YOU A:FORMER SMOKER HOW LONG HAS IT BEEN SINCE YOU LAST SMOKED?5-10 YEARS LATEX QUESTIONNAIRE LATEX ALLERGY : HAVE YOU EVER DEVELOPED ANY TYPE OF REACTION AFTER HANDLING LATEX PRODUCTS SUCH RUBBER GLOVES, CONDOMS, DIAPHRAGMS, BALLOONS, SOCKS, OR UNDERWEAR?NO LATEX ALLERGY : HAVE YOU EVER DEVELOPED ANY TYPE OF REACTION DURING OR AFTER DENTAL APPOINTMENT, VAGINAL/RECTAL EXAMINATION, SURGICAL PROCEDURE, OR ANY OTHER EXPOSURE?NO LATEX RISK : HAVE YOU EVER HAD ANY DIFFICULTY BREATHING OR HIVES AFTER EATING OR HANDLING ANY FRUITS, OR VEGETABLES; SUCH KIWI, BANANAS, STONE FRUITS, OR CHESTNUTSNO LATEX RISK : DO YOU HAVE A PREVIOUS PERSONAL HISTORY OF MORE THAN NINE SURGERIES, SPINA BIFIDA, OR REPEATED CATHERIZATIONS? NO LATEX RISK : ARE YOU FREQUENTLY EXPOSED TO LATEX PRODUCTS IN YOUR OCCUPATION?NO DATE ASKED : 08/14/2020 ALCOHOL SCREENING DID YOU HAVE A DRINK CONTAINING ALCOHOL IN THE PAST YEAR?NO POINTS0 INTERPRETATIONNEGATIVE RECREATIONAL DRUG USE DRUG USE?NO CAFFEINE CAFFEINE USE?YES HOW OFTEN AND HOW MUCH? 4 CUPS COFFEE PER DAY OR MORE CHRISTIAN [id number] ANGLICAN LANGUAGE LANGUAGES SPOKEN:EGYPTIAN LEARNING BARRIERS / SPECIAL NEEDS CHANGE FROM LAST VISIT?NO BARRIERS TO LEARNING?NO HEARING IMPAIRED?YES VISION IMPAIRED?YES COGNITIVELY IMPAIRED?NO :HEARING AIDES :CORRECTIVE LENSES READINESS TO LEARN?YES LEARNING PREFERENCES?NO LEARNING CAPABILITIES PRESENT?YES EMOTIONAL BARRIERS?NO SPECIAL DEVICES?NO AUTO SUSPENSION AND STEERING MECHANIC NEEDED?NO OCCUPATION: RETIRED. DIET: REGULAR. EXERCISE: STRETCHES EVERY OTHER DAY, WALKS WHEN WEATHER ALLOWS. NEW PATIENT PAIN DIARY TODAY'S VISIT NOTES 02/06/2020, PATIENT DESCRIBES PAIN : ACHING, HAVE IT ALL THE TIME, FROM 0-10, WHAT LEVEL IS YOUR PAIN TODAY? 2. PAIN CLINIC PFS, CLERGY, PUBLIC HEALTH REFERRALS PFS REFERRAL NEEDED?NO CLERGY REFERRAL NEEDED?NO PUBLIC HEALTH REFERRAL NEEDED?NO WAS THE PROVIDER NOTIFIED OF ANY PERTINENT INFO?YES HAS THE PATIENT BEEN EDUCATED REGARDING HIS/HER PLAN OF CARE?YES HAS THE PATIENT BEEN EDUCATED REGARDING PAIN, THE RISK FOR PAIN, THE IMPORTANCE OF EFFECTIVE PAIN MANAGEMENT, AND THE PAIN ASSESSMENT PROCESS?YES ADVANCE DIRECTIVE ADVANCE DIRECTIVE DISCUSSED WITH PATIENT:YES HCP - LETA ARAUJO () HOSPITALIZATION/MAJOR DIAGNOSTIC PROCEDURE SURGERIES HEART ATTACK Z6 REVIEW OF SYSTEMS CONSTITUTIONAL: ANY RECENT FEVER NO . CHILLS NO . WEIGHT CHANGE OF UNKNOWN REASONS NO . GASTROENTEROLOGY: NEW UNEXPLAINABLE CHANGES IN BOWEL CONTROL NO . CONSTIPATION NO . GENITOURINARY: ANY NEW CHANGE IN BLADDER CONTROL? NO . NEUROLOGY: NEW ONSET DIZZINESS OR NEUROLOGICAL CHANGES NOT MENTIONED NO . NEW NUMBNESS OR PAIN PATTERNS NOT MENTIONED AND PERTINENT TO TODAY'S VISIT NO . CARDIOLOGY: NEW CHEST PRESSURE NO . NEW CHEST PAIN NO . RESPIRATORY: UNEXPLAINABLE COUGH NO . NEW SHORTNESS OF BREATH NO . VITAL SIGNS WT 194.0 LBS, HT 72 IN, BMI 26.31 INDEX, BP 142/78 MM HG, HR 56 /MIN, RR 18 /MIN, TEMP 97.1 F, OXYGEN SAT % 97%, SAFE IN ENV? (Y/N) YES, NA INITIALS AW 0908, REVIEWED BY: MILLA. EXAMINATION GENERAL EXAMINATION: GENERAL AWAKE,ALERT ,PLEASANT . PSYCH AFFECT NORMAL . LUNGS: LUNG GALINDO ARE CLEAR TO AUSCULTATION BILATERALLY. GOOD MOVEMENT OF AIR . HEART: S1, S2 IN A REGULAR RATE AND RHYTHM. NO SIGNIFICANT MURMURS, RUBS OR GALLOPS NOTED . ASSESSMENTS LUMBAR SPONDYLOSIS - M47.816 (PRIMARY) TREATMENT LUMBAR SPONDYLOSIS CONTINUE GABAPENTIN TABLET, 600 MG, 1 CAPSULE, ORALLY, TAKE 1 CAP IN AM, ONE CAP AT 3 PM AND 2 CAPS AT BEDTIME REFILL TRAMADOL HCL ER TABLET EXTENDED RELEASE 24 HOUR, 300 MG, 1 TABLET, ORALLY FOR PAIN, ONCE A DAY CHRONIC PAIN MDD=1, 30 DAYS, 30, REFILLS 2 REFILL TRAMADOL HCL TABLET, 50 MG, 1 TABLET NEEDED, ORALLY, Q6-8HR PRN MDD3 #30 TAB SHOULD LAST 30 DAYS, 30 DAYS, 30, REFILLS 2 NOTES: ISTOP REGISTRY REVIEWED AND DEMONSTRATES COMPLLIANCE. BRINGS IN MEDICATIONS WHICH IS APPROPRIATE FOR WHAT WAS DISPENSED. RECENT URINE TOXICOLOGY REVIEWED. NO UNAUTHORIZED MEDICATIONS. NO ILLICIT SUBSTANCES AND PRESCRIBED MEDICATIONS WERE PRESENT. , RISKS OF NARCOTIC/OPIOD MEDICATIONS INCLUDES BUT IS NOT LIMITED TO RISK OF DEPENDANCE/DEVELOPMENT OF ADDICTION, MOOD DISTURBANCE AND DEPRESSION, OSTEOPOROSIS, HORMONAL AND LABIDAL CHANGES, RESPIRATORY DEPRESSION AND . PATIENT IS ADVISED NOT TO DRIVE OR DRINK ALCOHOL WHILE ON THESE MEDICATIONS. PROCEDURE CODES FA211 ESTABILISHED PATIENT [facility] CHARGE DISPOSITION & COMMUNICATION FOLLOW UP 3 MONTHS (REASON: MED MGMNT/LBP) ELECTRONICALLY SIGNED BY MISTY ADAMS ON 08/23/2020 AT 04:23 PM EDT DISCLAIMER : THIS IS A VISIT SUMMARY EXTRACTED FROM THE [employer] CHART. IT IS NOT A COPY OF THE [employer] PROGRESS NOTE. TOO
== END ==
LOC: M PAIN 09:00
PROVIDERS: ATTEND Nurse Practitioner Family
DX: M47.816 Spondylosis without myelopathy or radiculopathy, lumbar region (principal); G89.29 Other chronic pain; K21.9 Gastro-esophageal reflux disease without esophagitis; Z86.59 Personal history of other mental and behavioral disorders; Z87.891 Personal history of nicotine dependence; Z79.82 Long term (current) use of aspirin; Z79.891 Long term (current) use of opiate analgesic; Z79.899 Other long term (current) drug therapy

== ENCOUNTER → 2020-11-14 | Outpatient (CLI) | payer MEDICARE, SELFPAY ==
[~2020-11-14] MED LIST changes: -AMIT25TA PO; +AMIT25TA17 PO
--- NOTE | 2020-11-16 01:17 | ECWPNPC ---
PATIENT NAME: CHRISSY ARAUJO : 1950 GENDER: MALE VISIT DATE: 11/14/2020 DISCHARGE DATE: 11/14/20957 VISIT LOCKED DATE TIME: PHYSICIAN: AUGUSTIN RAY RESOURCE: AUGUSTIN RAY REASON FOR APPOINTMENT 1. MED MANAGEMENT/LOW BACK HISTORY OF PRESENT ILLNESS DEPRESSION SCREENING: PHQ-2 (2015 EDITION) LITTLE INTEREST OR PLEASURE IN DOING THINGS?NOT AT ALL FEELING DOWN, DEPRESSED, OR HOPELESS?NOT AT ALL TOTAL SCORE0 GENERAL: HERE FOR 3 MONTH FOLLOW-UP OF CHRONIC LOW BACK PAIN. DOING WELL WITH TRAMADOL EXTENDED RELEASE 300 MG DAILY. USING TRAMADOL 50 MG PERIODICALLY FOR SEVERE PAIN EPISODES AND GABAPENTIN 300 MG 3-4 TIMES DAILY. HAD FLAREUP LAST WEEK OF LOW BACK PAIN BUT THAT HAS RESOLVED. HAS RESPONDED WELL TO THERAPEUTIC LUMBAR BLOCKS IN THE PAST BUT DOESN'T FEEL HIS PAIN IS EXTREME ENOUGH TO CONSIDER THAT NOW. - -. FALL RISK SCREENING: SCREENING :NO FALLS REPORTED IN THE LAST YEAR PAIN SCREENING: PATIENT HAS A COMPLAINT OF ACUTE OR CHRONIC PAIN :YES LOCATION OF PAIN:LOW BACK INTENSITY OF PAIN (SCALE OF 1 TO 10):2 WHAT DOES YOUR PAIN FEEL LIKE:ACHING, THROBBING DULL DURATION:CONTINOUS, CONSTANT, PERIODIC, AWAKENS FROM SLEEP PAIN IS INCREASED BY:ACTIVITIES, PROLONGED STANDING, OTHERS BENDING OVER, LIFTING, DAILY ACTIVITIES PAIN IS DECREASED BY:USE OF PAIN MEDICATIONS, OTHERS HEATING PAD, INVERSION TABLE HELPS TREMENDOUSLY. PATIENT STATES HE USES THE INVERSION TABLE "EVERY OTHER DAY FOR ABOUT A MINUTE" TREATMENT/MEDICATIONS USED TO MANAGE PAIN:OTC PAIN RELIEVERS, TOPICAL CORTICOSTEROIDS, OPIOIDS, PHYSICAL THERAPY, NONE LEVEL OF RELIEF FROM PAIN TREATMENTS IN THE PAST:75% GABAPENTIN AND TRAMADOL NURSING NOTE: -. PAIN CENTER INTAKE QUESTIONS: DO YOU HAVE A HISTORY OF MRSA? :NO DO YOU TAKE A BLOOD THINNERS? :NO DO YOU HAVE ANY BLEEDING DISORDERS? :NO ANY NEW NUMBNESS OR WEAKNESS IN YOUR LEGS OR ARMS? :NO ANY PACEMAKER,DEFIBRILLATOR, OR DORSAL COLUMN STIMULATOR? :NO DO YOU HAVE ANY RASHES OR OPEN SORES? :NO ARE YOU ALLERGIC TO IV DYE? :NO ARE YOU DIABETIC? :NO ANY NEW PROBLEMS WITH YOUR MEDICATIONS? :NO HAVE YOU RECEIVED A VACCINE IN THE PAST 30 DAYS? :NO DO YOU PLAN TO RECEIVE A VACCINE IN THE NEXT 21 DAYS? :YES IF SO WHAT VACCINE AND WHEN? WOULD LIKE COVID VACCINATION WHEN IT BECOMES AVAILABLE. DO YOU NEED ANY PRESCRIPTION? :YES TRAMADOL, GABAPENTIN DO YOU TAKE ANY IMMUNOSUPPRESSIVE MEDICATIONS? :NO IS THERE A CHANCE YOU COULD BE ? :NO ARE YOU BREAST FEEDING? :NO CURRENT MEDICATIONS TAKING OMEPRAZOLE 40 MG CAPSULE DELAYED RELEASE ORAL ONCE DAILY TAKING LORATADINE 10 MG TABLET 1 TABLET ORALLY ONCE A DAY NEEDED TAKING METOPROLOL TARTRATE 25 MG TABLET 0.5 TAB ORALLY DAILY TAKING ASPIRIN 81 MG TABLET CHEWABLE 1 TABLET ORALLY ONCE A DAY TAKING RAMIPRIL 2.5 MG CAPSULE 1 CAPSULE ORALLY BID TAKING NITROGLYCERIN 0.4 MG TABLET SUBLINGUAL SUBLINGUAL , NOTES: NONE RECENTLY TAKING FLUOXETINE HCL 20 MG TABLET 1 CAPSULE IN THE MORNING ORALLY ONCE A DAY TAKING GABAPENTIN 600 MG TABLET 1 CAPSULE ORALLY TAKE 1 CAP IN AM, ONE CAP AT 3 PM AND 2 CAPS AT BEDTIME TAKING TRAMADOL HCL ER 300 MG TABLET EXTENDED RELEASE 24 HOUR 1 TABLET ORALLY FOR PAIN ONCE A DAY CHRONIC PAIN MDD=1 TAKING TRAMADOL HCL 50 MG TABLET 1 TABLET NEEDED ORALLY Q6-8HR PRN MDD3 #30 TAB SHOULD LAST 30 DAYS TAKING ATORVASTATIN CALCIUM 40 MG TABLET 1 TABLET ORALLY ONCE A DAY TAKING VITAMIN B COMPLEX - CAPSULE 1 TAB ORALLY DAILY NOT-TAKING ISOSORBIDE MONONITRATE ER 60 MG TABLET EXTENDED RELEASE 24 HOUR 1 TABLET IN THE MORNING ORALLY ONCE A DAY NOT-TAKING PREDNISONE 10 MG TABLET 1 TABLET ORALLY TAKE 5 TAB X2 DAYS, 4 TAB X 2 DAY, 3 TAB X 2 DAY, 2 TAB X 2 DAY, 1 TAB X 2 DAYS NOT-TAKING CELECOXIB 200 MG CAPSULE 1 CAPSULE WITH FOOD ORALLY ONCE A DAY NOT-TAKING NORCO 5-325 MG TABLET 1 TABLET NEEDED ORALLY EVERY 12 HRS PRN SEVERE PAIN MDD=2 MEDICATION LIST REVIEWED AND RECONCILED WITH THE PATIENT PAST MEDICAL HISTORY PROSTATE HIGH CHOLESTEROL DE HEART STENT LUMBAR SPONDYLOSIS DEPRESSION ACID REFLUX CHRONIC BACK PAIN ALLERGIES POLLEN SURGICAL HISTORY INGUINAL HERNIA REPAIR AND APPENDECTOMY 1970 CHOLECYSTECTOMY 12/20 COLONOSCOPY 05/2018 FAMILY HISTORY FATHER: 46 YRS, DIAGNOSED WITH UNSPECIFIED HEART DISEASE MOTHER: 52 YRS, COMPLICATIONS AFTER GALL BLADDER SURGERY SIBLINGS: ALIVE, THROAT CANCER, OTHER MALIGNANT NEOPLASM OF UNSPECIFIED SITE SOCIAL HISTORY GENERAL: TOBACCO USE ARE YOU A:FORMER SMOKER HOW LONG HAS IT BEEN SINCE YOU LAST SMOKED?5-10 YEARS LATEX QUESTIONNAIRE LATEX ALLERGY : HAVE YOU EVER DEVELOPED ANY TYPE OF REACTION AFTER HANDLING LATEX PRODUCTS SUCH RUBBER GLOVES, CONDOMS, DIAPHRAGMS, BALLOONS, SOCKS, OR UNDERWEAR?NO LATEX ALLERGY : HAVE YOU EVER DEVELOPED ANY TYPE OF REACTION DURING OR AFTER DENTAL APPOINTMENT, VAGINAL/RECTAL EXAMINATION, SURGICAL PROCEDURE, OR ANY OTHER EXPOSURE?NO LATEX RISK : HAVE YOU EVER HAD ANY DIFFICULTY BREATHING OR HIVES AFTER EATING OR HANDLING ANY FRUITS, OR VEGETABLES; SUCH KIWI, BANANAS, STONE FRUITS, OR CHESTNUTSNO LATEX RISK : DO YOU HAVE A PREVIOUS PERSONAL HISTORY OF MORE THAN NINE SURGERIES, SPINA BIFIDA, OR REPEATED CATHERIZATIONS? NO LATEX RISK : ARE YOU FREQUENTLY EXPOSED TO LATEX PRODUCTS IN YOUR OCCUPATION?NO DATE ASKED : 11/14/2020 ALCOHOL SCREENING DID YOU HAVE A DRINK CONTAINING ALCOHOL IN THE PAST YEAR?NO POINTS0 INTERPRETATIONNEGATIVE RECREATIONAL DRUG USE DRUG USE?NO CAFFEINE CAFFEINE USE?YES HOW OFTEN AND HOW MUCH? 4 CUPS COFFEE PER DAY OR MORE CATHOLIC [id number] ADVENTISM LANGUAGE LANGUAGES SPOKEN:MONGOLIAN LEARNING BARRIERS / SPECIAL NEEDS CHANGE FROM LAST VISIT?NO BARRIERS TO LEARNING?NO HEARING IMPAIRED?YES :HEARING AIDES VISION IMPAIRED?YES :CORRECTIVE LENSES COGNITIVELY IMPAIRED?NO READINESS TO LEARN?YES LEARNING PREFERENCES?NO LEARNING CAPABILITIES PRESENT?YES EMOTIONAL BARRIERS?NO SPECIAL DEVICES?NO LOGISTIC MANAGER NEEDED?NO OCCUPATION: RETIRED. DIET: REGULAR. EXERCISE: STRETCHES EVERY OTHER DAY, WALKS WHEN WEATHER ALLOWS. TODAY'S VISIT NOTES 02/06/2020, PATIENT DESCRIBES PAIN : ACHING, HAVE IT ALL THE TIME, FROM 0-10, WHAT LEVEL IS YOUR PAIN TODAY? 2. PAIN CLINIC PFS, CLERGY, PUBLIC HEALTH REFERRALS PFS REFERRAL NEEDED?NO CLERGY REFERRAL NEEDED?NO PUBLIC HEALTH REFERRAL NEEDED?NO WAS THE PROVIDER NOTIFIED OF ANY PERTINENT INFO?YES HAS THE PATIENT BEEN EDUCATED REGARDING HIS/HER PLAN OF CARE?YES HAS THE PATIENT BEEN EDUCATED REGARDING PAIN, THE RISK FOR PAIN, THE IMPORTANCE OF EFFECTIVE PAIN MANAGEMENT, AND THE PAIN ASSESSMENT PROCESS?YES ADVANCE DIRECTIVE ADVANCE DIRECTIVE DISCUSSED WITH PATIENT:YES HCP - LETA ARAUJO () HOSPITALIZATION/MAJOR DIAGNOSTIC PROCEDURE SURGERIES HEART ATTACK [id number] REVIEW OF SYSTEMS CONSTITUTIONAL: ANY RECENT FEVER NO . CHILLS NO . WEIGHT CHANGE OF UNKNOWN REASONS NO . GASTROENTEROLOGY: NEW UNEXPLAINABLE CHANGES IN BOWEL CONTROL NO . CONSTIPATION NO . GENITOURINARY: ANY NEW CHANGE IN BLADDER CONTROL? NO . NEUROLOGY: NEW ONSET DIZZINESS OR NEUROLOGICAL CHANGES NOT MENTIONED NO . NEW NUMBNESS OR PAIN PATTERNS NOT MENTIONED AND PERTINENT TO TODAY'S VISIT NO . CARDIOLOGY: NEW CHEST PRESSURE NO . NEW CHEST PAIN NO . RESPIRATORY: UNEXPLAINABLE COUGH NO . NEW SHORTNESS OF BREATH NO . VITAL SIGNS WT 205.6 LBS, HT 72 IN, BMI 27.88 INDEX, BP 134/81 MM HG, HR 63 /MIN, RR 18 /MIN, TEMP 97.6 F, OXYGEN SAT % 96%, SAFE IN ENV? (Y/N) YES, NA INITIALS JS [id number], REVIEWED BY: ANTHONY MULTANI MA. EXAMINATION GENERAL EXAMINATION: GENERAL AWAKE,ALERT ,PLEASANT . PSYCH AFFECT NORMAL . LUNGS: LUNG GALINDO ARE CLEAR TO AUSCULTATION BILATERALLY. GOOD MOVEMENT OF AIR . HEART: S1, S2 IN A REGULAR RATE AND RHYTHM. NO SIGNIFICANT MURMURS, RUBS OR GALLOPS NOTED . ASSESSMENTS LUMBAR SPONDYLOSIS - M47.816 (PRIMARY) TREATMENT LUMBAR SPONDYLOSIS REFILL GABAPENTIN TABLET, 600 MG, 1 CAPSULE, ORALLY, TAKE 1 CAP IN AM, ONE CAP AT 3 PM AND 2 CAPS AT BEDTIME, 30 DAYS, 120, REFILLS 2 REFILL TRAMADOL HCL ER TABLET EXTENDED RELEASE 24 HOUR, 300 MG, 1 TABLET, ORALLY FOR PAIN, ONCE A DAY CHRONIC PAIN MDD=1, 30 DAYS, 30, REFILLS 2 REFILL TRAMADOL HCL TABLET, 50 MG, 1 TABLET NEEDED, ORALLY, Q6-8HR PRN MDD3 #30 TAB SHOULD LAST 30 DAYS, 30 DAYS, 30, REFILLS 2 NOTES: ISTOP REGISTRY REVIEWED AND DEMONSTRATES COMPLLIANCE. BRINGS IN MEDICATIONS WHICH IS APPROPRIATE FOR WHAT WAS DISPENSED. RECENT URINE TOXICOLOGY REVIEWED. NO UNAUTHORIZED MEDICATIONS. NO ILLICIT SUBSTANCES AND PRESCRIBED MEDICATIONS WERE PRESENT. PROCEDURE CODES FA211 ESTABILISHED PATIENT [facility] FACILITY CHARGE DISPOSITION & COMMUNICATION FOLLOW UP 3 MONTHS (REASON: MED MGMNT/UTOX) ELECTRONICALLY SIGNED BY MISTY ADAMS ON 11/15/2020 AT 09:57 AM EST DISCLAIMER : THIS IS A VISIT SUMMARY EXTRACTED FROM THE [employer] CHART. IT IS NOT A COPY OF THE [employer] [facility] PROGRESS NOTE. TOO
== END ==
LOC: M PAIN 09:00
PROVIDERS: ATTEND Nurse Practitioner Family
DX: M47.816 Spondylosis without myelopathy or radiculopathy, lumbar region (principal); G89.29 Other chronic pain; K21.9 Gastro-esophageal reflux disease without esophagitis; Z86.59 Personal history of other mental and behavioral disorders; Z87.891 Personal history of nicotine dependence; Z79.82 Long term (current) use of aspirin; Z79.891 Long term (current) use of opiate analgesic; Z79.899 Other long term (current) drug therapy

== ENCOUNTER → 2021-02-12 | Outpatient (CLI) | payer MEDICARE, SELFPAY ==
--- NOTE | 2021-02-14 02:13 | ECWPNPC ---
PATIENT NAME: CHRISSY ARAUJO : 1950 GENDER: MALE VISIT DATE: 02/12/2021 DISCHARGE DATE: 02/12/21 1003 VISIT LOCKED DATE TIME: PHYSICIAN: AUGUSTIN RAY RESOURCE: AUGUSTIN RAY REASON FOR APPOINTMENT 1. LOW BACK/UTOX/MED MANAGEMENT HISTORY OF PRESENT ILLNESS GENERAL: HERE FOR 3 MONTH FOLLOW-UP OF CHRONIC LOW BACK PAIN. DOING WELL WITH TRAMADOL EXTENDED RELEASE 300 MG DAILY. USING TRAMADOL 50 MG PERIODICALLY FOR SEVERE PAIN EPISODES AND GABAPENTIN 300 MG 3-4 TIMES DAILY. PATIENT WALKS ON A REGULAR BASIS FOR EXCERSISE. HAS RESPONDED WELL TO THERAPEUTIC LUMBAR BLOCKS IN THE PAST. - - -. FALL RISK SCREENING: SCREENING : NO FALLS REPORTED IN THE LAST YEAR. PAIN SCREENING: PATIENT HAS A COMPLAINT OF ACUTE OR CHRONIC PAIN :YES LOCATION OF PAIN:LOW BACK INTENSITY OF PAIN (SCALE OF 1 TO 10):2 WHAT DOES YOUR PAIN FEEL LIKE:ACHING, THROBBING DURATION:CONTINOUS, CONSTANT, ALL DAY PAIN IS INCREASED BY:ACTIVITIES, PROLONGED STANDING, OTHERS SITTING FOR A LONG TIMES PAIN IS DECREASED BY:USE OF PAIN MEDICATIONS NURSING NOTE: -. PAIN CENTER INTAKE QUESTIONS: DO YOU HAVE A HISTORY OF MRSA? :NO DO YOU TAKE A BLOOD THINNERS? :NO DO YOU HAVE ANY BLEEDING DISORDERS? :NO ANY NEW NUMBNESS OR WEAKNESS IN YOUR LEGS OR ARMS? :NO ANY PACEMAKER,DEFIBRILLATOR, OR DORSAL COLUMN STIMULATOR? :NO DO YOU HAVE ANY RASHES OR OPEN SORES? :NO ARE YOU ALLERGIC TO IV DYE? :NO ARE YOU DIABETIC? :NO ANY NEW PROBLEMS WITH YOUR MEDICATIONS? :NO HAVE YOU RECEIVED A VACCINE IN THE PAST 30 DAYS? :YES IF SO WHAT VACCINE AND WHEN? 2ND COVID 01/26/2021 DO YOU PLAN TO RECEIVE A VACCINE IN THE NEXT 21 DAYS? :NO DO YOU NEED ANY PRESCRIPTION? :YES TRAMADOL, GABAPENTIN DO YOU TAKE ANY IMMUNOSUPPRESSIVE MEDICATIONS? :NO IS THERE A CHANCE YOU COULD BE ? :NO ARE YOU BREAST FEEDING? :NO CURRENT MEDICATIONS TAKING OMEPRAZOLE 40 MG CAPSULE DELAYED RELEASE ORAL ONCE DAILY TAKING LORATADINE 10 MG TABLET 1 TABLET ORALLY ONCE A DAY NEEDED TAKING METOPROLOL TARTRATE 25 MG TABLET 0.5 TAB ORALLY DAILY TAKING ASPIRIN 81 MG TABLET CHEWABLE 1 TABLET ORALLY ONCE A DAY TAKING RAMIPRIL 2.5 MG CAPSULE 1 CAPSULE ORALLY BID TAKING NITROGLYCERIN 0.4 MG TABLET SUBLINGUAL SUBLINGUAL , NOTES: NONE RECENTLY TAKING FLUOXETINE HCL 20 MG TABLET 1 CAPSULE IN THE MORNING ORALLY ONCE A DAY TAKING ATORVASTATIN CALCIUM 40 MG TABLET 1 TABLET ORALLY ONCE A DAY TAKING VITAMIN B COMPLEX - CAPSULE 1 TAB ORALLY DAILY TAKING GABAPENTIN 600 MG TABLET 1 CAPSULE ORALLY TAKE 1 CAP IN AM, ONE CAP AT 3 PM AND 2 CAPS AT BEDTIME TAKING TRAMADOL HCL ER 300 MG TABLET EXTENDED RELEASE 24 HOUR 1 TABLET ORALLY FOR PAIN ONCE A DAY CHRONIC PAIN MDD=1 TAKING TRAMADOL HCL 50 MG TABLET 1 TABLET NEEDED ORALLY Q6-8HR PRN MDD3 #30 TAB SHOULD LAST 30 DAYS NOT-TAKING ISOSORBIDE MONONITRATE ER 60 MG TABLET EXTENDED RELEASE 24 HOUR 1 TABLET IN THE MORNING ORALLY ONCE A DAY NOT-TAKING PREDNISONE 10 MG TABLET 1 TABLET ORALLY TAKE 5 TAB X2 DAYS, 4 TAB X 2 DAY, 3 TAB X 2 DAY, 2 TAB X 2 DAY, 1 TAB X 2 DAYS NOT-TAKING CELECOXIB 200 MG CAPSULE 1 CAPSULE WITH FOOD ORALLY ONCE A DAY NOT-TAKING NORCO 5-325 MG TABLET 1 TABLET NEEDED ORALLY EVERY 12 HRS PRN SEVERE PAIN MDD=2 MEDICATION LIST REVIEWED AND RECONCILED WITH THE PATIENT PAST MEDICAL HISTORY PROSTATE HIGH CHOLESTEROL PA HEART STENT LUMBAR SPONDYLOSIS DEPRESSION ACID REFLUX CHRONIC BACK PAIN ALLERGIES POLLEN: DYSPNEA - SIDE EFFECTS SOCIAL HISTORY GENERAL: TOBACCO USE ARE YOU A:FORMER SMOKER HOW LONG HAS IT BEEN SINCE YOU LAST SMOKED?5-10 YEARS LATEX QUESTIONNAIRE LATEX ALLERGY : HAVE YOU EVER DEVELOPED ANY TYPE OF REACTION AFTER HANDLING LATEX PRODUCTS SUCH RUBBER GLOVES, CONDOMS, DIAPHRAGMS, BALLOONS, SOCKS, OR UNDERWEAR?NO LATEX ALLERGY : HAVE YOU EVER DEVELOPED ANY TYPE OF REACTION DURING OR AFTER DENTAL APPOINTMENT, VAGINAL/RECTAL EXAMINATION, SURGICAL PROCEDURE, OR ANY OTHER EXPOSURE?NO LATEX RISK : HAVE YOU EVER HAD ANY DIFFICULTY BREATHING OR HIVES AFTER EATING OR HANDLING ANY FRUITS, OR VEGETABLES; SUCH KIWI, BANANAS, STONE FRUITS, OR CHESTNUTSNO LATEX RISK : DO YOU HAVE A PREVIOUS PERSONAL HISTORY OF MORE THAN NINE SURGERIES, SPINA BIFIDA, OR REPEATED CATHERIZATIONS? NO LATEX RISK : ARE YOU FREQUENTLY EXPOSED TO LATEX PRODUCTS IN YOUR OCCUPATION?NO DATE ASKED : 02/12/2021 ALCOHOL USE: NO. ALCOHOL SCREENING DID YOU HAVE A DRINK CONTAINING ALCOHOL IN THE PAST YEAR?NO POINTS0 INTERPRETATIONNEGATIVE RECREATIONAL DRUG USE DRUG USE?NO CAFFEINE CAFFEINE USE?YES HOW OFTEN AND HOW MUCH? 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 DIET: REGULAR. EXERCISE: STRETCHES EVERY OTHER DAY, WALKS WHEN WEATHER ALLOWS. TODAY'S VISIT NOTES 02/06/2020, PATIENT DESCRIBES PAIN : ACHING, HAVE IT ALL THE TIME, FROM 0-10, WHAT LEVEL IS YOUR PAIN TODAY? 2. - PFS REFERRAL NEEDED?NO CLERGY REFERRAL NEEDED?NO PUBLIC HEALTH REFERRAL NEEDED?NO WAS THE PROVIDER NOTIFIED OF ANY PERTINENT INFO?YES HAS THE PATIENT BEEN EDUCATED REGARDING HIS/HER PLAN OF CARE?YES HAS THE PATIENT BEEN EDUCATED REGARDING PAIN, THE RISK FOR PAIN, THE IMPORTANCE OF EFFECTIVE PAIN MANAGEMENT, AND THE PAIN ASSESSMENT PROCESS?YES ADVANCE DIRECTIVE ADVANCE DIRECTIVE DISCUSSED WITH PATIENT:YES HCP - LETA ARAUJO () REVIEW OF SYSTEMS CONSTITUTIONAL: ANY RECENT FEVER NO . CHILLS NO . WEIGHT CHANGE OF UNKNOWN REASONS NO . GASTROENTEROLOGY: NEW UNEXPLAINABLE CHANGES IN BOWEL CONTROL NO . CONSTIPATION NO . GENITOURINARY: ANY NEW CHANGE IN BLADDER CONTROL? NO . NEUROLOGY: NEW ONSET DIZZINESS OR NEUROLOGICAL CHANGES NOT MENTIONED NO . NEW NUMBNESS OR PAIN PATTERNS NOT MENTIONED AND PERTINENT TO TODAY'S VISIT NO . CARDIOLOGY: NEW CHEST PRESSURE NO . PATIENT DENIES NO . RESPIRATORY: UNEXPLAINABLE COUGH NO . NEW SHORTNESS OF BREATH NO . VITAL SIGNS WT 202.4 LBS, HT 72 IN, BMI 27.45 INDEX, BP 131/73 MM HG, HR 60 /MIN, RR 18 /MIN, TEMP 97.1 F, OXYGEN SAT % 95%, SAFE IN ENV? (Y/N) YES, NA INITIALS AW [id number].JOSE M VELASCO. EXAMINATION GENERAL EXAMINATION: GENERALAWAKE,ALERT ,PLEASANT . PSYCHAFFECT NORMAL . LUNGS:LUNG AGLINDO ARE CLEAR TO AUSCULTATION BILATERALLY. GOOD MOVEMENT OF AIR . HEART:S1, S2 IN A REGULAR RATE AND RHYTHM. NO SIGNIFICANT MURMURS, RUBS OR GALLOPS NOTED . ASSESSMENTS LUMBAR SPONDYLOSIS - M47.816 (PRIMARY) TREATMENT LUMBAR SPONDYLOSIS REFILL GABAPENTIN TABLET, 600 MG, 1 CAPSULE, ORALLY, TAKE 1 CAP IN AM, ONE CAP AT 3 PM AND 2 CAPS AT BEDTIME, 30 DAYS, 120, REFILLS 2 REFILL TRAMADOL HCL ER TABLET EXTENDED RELEASE 24 HOUR, 300 MG, 1 TABLET, ORALLY FOR PAIN, ONCE A DAY CHRONIC PAIN MDD=1, 30 DAYS, 30, REFILLS 2 CONTINUE TRAMADOL HCL TABLET, 50 MG, 1 TABLET NEEDED, ORALLY, Q6-8HR PRN MDD3 #30 TAB SHOULD LAST 30 DAYS, 30 DAYS, 45, REFILLS 2 LAB: URINE TEST [facility] 02/12/2021 9:52:31 AM > LAST DOSE : TRAMADOL 02/12/2021 @7:30AM , GABAPENTIN 02/12/2021 @7:30AM NOTES: CONTINUE HOME EXCERSISE. PROCEDURE CODES FA211 ESTABILISHED PATIENT [facility] CHARGE DISPOSITION & COMMUNICATION FOLLOW UP 3 MONTHS (REASON: MED F/U REVIEW UTOX) ELECTRONICALLY SIGNED BY MISTY ADAMS ON 02/13/2021 AT 10:37 AM EDT DISCLAIMER : THIS IS A VISIT SUMMARY EXTRACTED FROM THE [employer] [facility] [place] CH[facility]. IT IS NOT A COPY OF THE [facility] [place] PROGRESS NOTE. TOO
== END ==
LOC: M PAIN 09:15
PROVIDERS: ATTEND Nurse Practitioner Family
DX: M47.816 Spondylosis without myelopathy or radiculopathy, lumbar region (principal); E78.00 Pure hypercholesterolemia, unspecified; I25.2 Old myocardial infarction; F32.9 Major depressive disorder, single episode, unspecified; K21.9 Gastro-esophageal reflux disease without esophagitis; J30.1 Allergic rhinitis due to pollen; Z87.891 Personal history of nicotine dependence; Z79.82 Long term (current) use of aspirin; Z79.891 Long term (current) use of opiate analgesic; Z79.899 Other long term (current) drug therapy

== ENCOUNTER → 2021-04-17 | Outpatient (CLI) | payer MEDICARE ==
[2021-04-17 17:56] LABS: HEMATOCRIT 40.7 % (42.0-52.0); HEMOGLOBIN 13.4 g/dl (13.5-17.5); MEAN CORPUSCULAR HGB CONC 32.9 g/dl (32.0-36.5); MEAN CORPUSCULAR VOLUME 91.1 fl (80.0-96.0); PLATELET COUNT, AUTOMATED 276 10^3/uL (150-450); RED BLOOD COUNT 4.47 10^6/uL (4.30-6.10)
[2021-04-17 18:53] LABS: ERYTHROCYTE SEDIMENTATION RATE 4 mm/hr (0-20)
== END ==
LOC: M LAB 17:20
PROVIDERS: ATTEND Physician Assistant
DX: M70.21 Olecranon bursitis, right elbow (principal)

== ENCOUNTER → 2021-05-08 | Outpatient (CLI) | payer MEDICARE, SELFPAY ==
--- NOTE | 2021-05-10 04:37 | ECWPNPC ---
PATIENT NAME: CHRISSY ARAUJO : 1950 GENDER: MALE VISIT DATE: 05/08/2021 DISCHARGE DATE: 05/08/21 1133 VISIT LOCKED DATE TIME: PHYSICIAN: AUGUSTIN RAY RESOURCE: AUGUSTIN RAY REASON FOR APPOINTMENT 1. MED F/U REVIEW UTOX HISTORY OF PRESENT ILLNESS GENERAL: HERE FOR 3 MONTH FOLLOW-UP OF CHRONIC LOW BACK PAIN. DOING WELL WITH TRAMADOL EXTENDED RELEASE 300 MG DAILY. USING TRAMADOL 50 MG PERIODICALLY FOR SEVERE PAIN EPISODES AND GABAPENTIN 300 MG 3-4 TIMES DAILY. PATIENT WALKS ON A REGULAR BASIS FOR EXCERSISE. HAS RESPONDED WELL TO THERAPEUTIC LUMBAR BLOCKS IN THE PAST. - - - -. FALL RISK SCREENING: SCREENING : NO FALLS REPORTED IN THE LAST YEAR. PAIN SCREENING: PATIENT HAS A COMPLAINT OF ACUTE OR CHRONIC PAIN :YES LOCATION OF PAIN:LOW BACK INTENSITY OF PAIN (SCALE OF 1 TO 10):2 WHAT DOES YOUR PAIN FEEL LIKE:ACHING, CONTINOUS DURATION:CONTINOUS, ONLY WITH SPECIFIC ACTIVITIES PAIN IS INCREASED BY:ACTIVITIES PAIN IS DECREASED BY:USE OF PAIN MEDICATIONS NURSING NOTE: -. PAIN CENTER INTAKE QUESTIONS: DO YOU HAVE A HISTORY OF MRSA? :NO DO YOU TAKE A BLOOD THINNERS? :NO ASPIRIN 81 MG DO YOU HAVE ANY BLEEDING DISORDERS? :NO ANY NEW NUMBNESS OR WEAKNESS IN YOUR LEGS OR ARMS? :NO ANY PACEMAKER,DEFIBRILLATOR, OR DORSAL COLUMN STIMULATOR? :NO DO YOU HAVE ANY RASHES OR OPEN SORES? :NO ARE YOU ALLERGIC TO IV DYE? :NO ARE YOU DIABETIC? :NO ANY NEW PROBLEMS WITH YOUR MEDICATIONS? :YES TRAMADOL HCL ER 300 MG NEED REFILL ON IT HAVE YOU RECEIVED A VACCINE IN THE PAST 30 DAYS? :YES IF SO WHAT VACCINE AND WHEN? 2ND COVID 01/26/2021 DO YOU PLAN TO RECEIVE A VACCINE IN THE NEXT 21 DAYS? :NO DO YOU NEED ANY PRESCRIPTION? :YES TRAMADOL, GABAPENTIN DO YOU TAKE ANY IMMUNOSUPPRESSIVE MEDICATIONS? :NO IS THERE A CHANCE YOU COULD BE ? :NO ARE YOU BREAST FEEDING? :NO CURRENT MEDICATIONS TAKING OMEPRAZOLE 40 MG CAPSULE DELAYED RELEASE ORAL ONCE DAILY TAKING LORATADINE 10 MG TABLET 1 TABLET ORALLY ONCE A DAY NEEDED TAKING METOPROLOL TARTRATE 25 MG TABLET 0.5 TAB ORALLY DAILY TAKING ASPIRIN 81 MG TABLET CHEWABLE 1 TABLET ORALLY ONCE A DAY TAKING RAMIPRIL 2.5 MG CAPSULE 1 CAPSULE ORALLY BID TAKING NITROGLYCERIN 0.4 MG TABLET SUBLINGUAL SUBLINGUAL , NOTES: NONE RECENTLY TAKING FLUOXETINE HCL 20 MG TABLET 1 CAPSULE IN THE MORNING ORALLY ONCE A DAY TAKING ATORVASTATIN CALCIUM 40 MG TABLET 1 TABLET ORALLY ONCE A DAY TAKING VITAMIN B COMPLEX - CAPSULE 1 TAB ORALLY DAILY TAKING GABAPENTIN 600 MG TABLET 1 CAPSULE ORALLY TAKE 1 CAP IN AM, ONE CAP AT 3 PM AND 2 CAPS AT BEDTIME TAKING TRAMADOL HCL 50 MG TABLET 1 TABLET NEEDED ORALLY Q6-8HR PRN MDD3 #30 TAB SHOULD LAST 30 DAYS TAKING TRAMADOL HCL ER 300 MG TABLET EXTENDED RELEASE 24 HOUR 1 TABLET ORALLY ONCE A DAY NOT-TAKING ISOSORBIDE MONONITRATE ER 60 MG TABLET EXTENDED RELEASE 24 HOUR 1 TABLET IN THE MORNING ORALLY ONCE A DAY NOT-TAKING PREDNISONE 10 MG TABLET 1 TABLET ORALLY TAKE 5 TAB X2 DAYS, 4 TAB X 2 DAY, 3 TAB X 2 DAY, 2 TAB X 2 DAY, 1 TAB X 2 DAYS NOT-TAKING CELECOXIB 200 MG CAPSULE 1 CAPSULE WITH FOOD ORALLY ONCE A DAY NOT-TAKING NORCO 5-325 MG TABLET 1 TABLET NEEDED ORALLY EVERY 12 HRS PRN SEVERE PAIN MDD=2 MEDICATION LIST REVIEWED AND RECONCILED WITH THE PATIENT PAST MEDICAL HISTORY PROSTATE HIGH CHOLESTEROL NM HEART STENT LUMBAR SPONDYLOSIS DEPRESSION ACID REFLUX CHRONIC BACK PAIN 2ND COVID 01/26/2021 ALLERGIES POLLEN: DYSPNEA - SIDE EFFECTS SURGICAL HISTORY INGUINAL HERNIA REPAIR AND APPENDECTOMY 1971 CHOLECYSTECTOMY 12/20 COLONOSCOPY 05/2018 SOCIAL HISTORY GENERAL: TOBACCO USE ARE YOU A:FORMER SMOKER HOW LONG HAS IT BEEN SINCE YOU LAST SMOKED?5-10 YEARS LATEX QUESTIONNAIRE LATEX ALLERGY : HAVE YOU EVER DEVELOPED ANY TYPE OF REACTION AFTER HANDLING LATEX PRODUCTS SUCH RUBBER GLOVES, CONDOMS, DIAPHRAGMS, BALLOONS, SOCKS, OR UNDERWEAR?NO LATEX ALLERGY : HAVE YOU EVER DEVELOPED ANY TYPE OF REACTION DURING OR AFTER DENTAL APPOINTMENT, VAGINAL/RECTAL EXAMINATION, SURGICAL PROCEDURE, OR ANY OTHER EXPOSURE?NO LATEX RISK : HAVE YOU EVER HAD ANY DIFFICULTY BREATHING OR HIVES AFTER EATING OR HANDLING ANY FRUITS, OR VEGETABLES; SUCH KIWI, BANANAS, STONE FRUITS, OR CHESTNUTSNO LATEX RISK : DO YOU HAVE A PREVIOUS PERSONAL HISTORY OF MORE THAN NINE SURGERIES, SPINA BIFIDA, OR REPEATED CATHERIZATIONS? NO LATEX RISK : ARE YOU FREQUENTLY EXPOSED TO LATEX PRODUCTS IN YOUR OCCUPATION?NO DATE ASKED : 05/08/2021 ALCOHOL USE: NO. ALCOHOL SCREENING DID YOU HAVE A DRINK CONTAINING ALCOHOL IN THE PAST YEAR?NO POINTS0 INTERPRETATIONNEGATIVE RECREATIONAL DRUG USE DRUG USE?NO CAFFEINE CAFFEINE USE?YES HOW OFTEN AND HOW MUCH? 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 DIET: REGULAR. EXERCISE: STRETCHES EVERY OTHER DAY, WALKS WHEN WEATHER ALLOWS. TODAY'S VISIT NOTES 02/06/2020, PATIENT DESCRIBES PAIN : ACHING, HAVE IT ALL THE TIME, FROM 0-10, WHAT LEVEL IS YOUR PAIN TODAY? 2. - PFS REFERRAL NEEDED?NO CLERGY REFERRAL NEEDED?NO PUBLIC HEALTH REFERRAL NEEDED?NO WAS THE PROVIDER NOTIFIED OF ANY PERTINENT INFO?YES HAS THE PATIENT BEEN EDUCATED REGARDING HIS/HER PLAN OF CARE?YES HAS THE PATIENT BEEN EDUCATED REGARDING PAIN, THE RISK FOR PAIN, THE IMPORTANCE OF EFFECTIVE PAIN MANAGEMENT, AND THE PAIN ASSESSMENT PROCESS?YES ADVANCE DIRECTIVE ADVANCE DIRECTIVE DISCUSSED WITH PATIENT:YES HCP - LETA ARAUJO () HOSPITALIZATION/MAJOR DIAGNOSTIC PROCEDURE SURGERIES HEART ATTACK [id number] REVIEW OF SYSTEMS CONSTITUTIONAL: ANY RECENT FEVER NO . CHILLS NO . WEIGHT CHANGE OF UNKNOWN REASONS NO . GASTROENTEROLOGY: NEW UNEXPLAINABLE CHANGES IN BOWEL CONTROL NO . CONSTIPATION NO . GENITOURINARY: ANY NEW CHANGE IN BLADDER CONTROL? NO . NEUROLOGY: NEW ONSET DIZZINESS OR NEUROLOGICAL CHANGES NOT MENTIONED NO . NEW NUMBNESS OR PAIN PATTERNS NOT MENTIONED AND PERTINENT TO TODAY'S VISIT NO . CARDIOLOGY: NEW CHEST PRESSURE NO . PATIENT DENIES NO . RESPIRATORY: UNEXPLAINABLE COUGH NO . NEW SHORTNESS OF BREATH NO . VITAL SIGNS WT 207.0 LBS, HT 72 IN, BMI 28.07 INDEX, BP 133/67 MM HG, HR 58 /MIN, RR 18 /MIN, TEMP 97.4 F, OXYGEN SAT % 99%, SAFE IN ENV? (Y/N) YES, NA INITIALS AW 1048T.JOSE M VELASCO. EXAMINATION GENERAL EXAMINATION: GENERALAWAKE,ALERT ,PLEASANT . PSYCHAFFECT NORMAL . LUNGS:LUNG GALINDO ARE CLEAR TO AUSCULTATION BILATERALLY. GOOD MOVEMENT OF AIR . HEART:S1, S2 IN A REGULAR RATE AND RHYTHM. NO SIGNIFICANT MURMURS, RUBS OR GALLOPS NOTED . ASSESSMENTS LUMBAR SPONDYLOSIS - M47.816 (PRIMARY) TREATMENT LUMBAR SPONDYLOSIS REFILL TRAMADOL HCL ER TABLET EXTENDED RELEASE 24 HOUR, 300 MG, 1 TABLET, ORALLY, ONCE A DAY, 30 DAYS, 30, REFILLS 2 CONTINUE TRAMADOL HCL TABLET, 50 MG, 1 TABLET NEEDED, ORALLY, Q6-8HR PRN MDD3 #30 TAB SHOULD LAST 30 DAYS CONTINUE GABAPENTIN TABLET, 600 MG, 1 CAPSULE, ORALLY, TAKE 1 CAP IN AM, ONE CAP AT 3 PM AND 2 CAPS AT BEDTIME NOTES: ISTOP REGISTRY REVIEWED AND DEMONSTRATES COMPLLIANCE. BRINGS IN MEDICATIONS WHICH IS APPROPRIATE FOR WHAT WAS DISPENSED. RECENT URINE TOXICOLOGY REVIEWED. NO UNAUTHORIZED MEDICATIONS. NO ILLICIT SUBSTANCES AND PRESCRIBED MEDICATIONS WERE PRESENT. , RISKS OF NARCOTIC/OPIOD MEDICATIONS INCLUDES BUT IS NOT LIMITED TO RISK OF DEPENDANCE/DEVELOPMENT OF ADDICTION, MOOD DISTURBANCE AND DEPRESSION, OSTEOPOROSIS, HORMONAL AND LABIDAL CHANGES, RESPIRATORY DEPRESSION AND . PATIENT IS ADVISED NOT TO DRIVE OR DRINK ALCOHOL WHILE ON THESE MEDICATIONS. PROCEDURE CODES [id number] ESTABILISHED PATIENT [facility] FAC[facility] CHARGE DISPOSITION & COMMUNICATION FOLLOW UP 3 MONTHS (REASON: MED MGMNT/UTOX) ELECTRONICALLY SIGNED BY MISTY ADAMS ON 05/09/2021 AT 03:17 PM EDT DISCLAIMER : THIS IS A VISIT SUMMARY EXTRACTED FROM THE [employer] CHART. IT IS NOT A COPY OF THE [employer] PROGRESS NOTE. TOO
== END ==
LOC: M PAIN 10:30
PROVIDERS: ATTEND Nurse Practitioner Family
DX: M47.816 Spondylosis without myelopathy or radiculopathy, lumbar region (principal); G89.29 Other chronic pain; I25.2 Old myocardial infarction; K21.9 Gastro-esophageal reflux disease without esophagitis; Z86.59 Personal history of other mental and behavioral disorders; Z87.891 Personal history of nicotine dependence; Z79.82 Long term (current) use of aspirin; Z79.891 Long term (current) use of opiate analgesic; Z79.899 Other long term (current) drug therapy

== ENCOUNTER → 2021-08-09 | Outpatient (CLI) | payer MEDICARE, SELFPAY | LOC: M PAIN 09:45 | PROVIDERS: ATTEND Anesthesiology | DX: M47.816 Spondylosis without myelopathy or radiculopathy, lumbar region (principal); M48.061 Spinal stenosis, lumbar region without neurogenic claudication; M51.16 Intervertebral disc disorders with radiculopathy, lumbar region; G89.29 Other chronic pain; I25.2 Old myocardial infarction; K21.9 Gastro-esophageal reflux disease without esophagitis; Z86.59 Personal history of other mental and behavioral disorders; Z87.891 Personal history of nicotine dependence; Z79.82 Long term (current) use of aspirin; Z79.891 Long term (current) use of opiate analgesic; Z79.899 Other long term (current) drug therapy ==

== ENCOUNTER → 2021-09-05 | Outpatient (CLI) | payer MEDICARE, SELFPAY | LOC: M PAIN 10:15 | PROVIDERS: ATTEND Anesthesiology | DX: M48.062 Spinal stenosis, lumbar region with neurogenic claudication (principal); M51.16 Intervertebral disc disorders with radiculopathy, lumbar region; G89.29 Other chronic pain; I25.2 Old myocardial infarction; K21.9 Gastro-esophageal reflux disease without esophagitis; Z86.59 Personal history of other mental and behavioral disorders; Z87.891 Personal history of nicotine dependence; Z79.82 Long term (current) use of aspirin; Z79.891 Long term (current) use of opiate analgesic; Z79.899 Other long term (current) drug therapy ==

== ENCOUNTER → 2021-10-17 | Outpatient (CLI) | payer MEDICARE | LOC: M PLAIMG 12:33 | PROVIDERS: ATTEND Anesthesiology | DX: M48.062 Spinal stenosis, lumbar region with neurogenic claudication (principal); M51.26 Other intervertebral disc displacement, lumbar region; M51.36 Other intervertebral disc degeneration, lumbar region ==

== ENCOUNTER → 2022-04-16 | Outpatient (CLI) | payer MEDICARE | LOC: M PAIN 09:45 | PROVIDERS: ATTEND Anesthesiology | DX: M51.16 Intervertebral disc disorders with radiculopathy, lumbar region (principal); G89.29 Other chronic pain; K21.9 Gastro-esophageal reflux disease without esophagitis; Z86.59 Personal history of other mental and behavioral disorders; Z87.891 Personal history of nicotine dependence; Z79.82 Long term (current) use of aspirin; Z79.891 Long term (current) use of opiate analgesic; Z79.899 Other long term (current) drug therapy ==